=== PATIENT | female | born 1930 | race Caucasian/White ===

== ENCOUNTER 2017-08-17 12:38 | Inpatient (IN) | payer OTHER, MEDICARE ==
[~2017-08-17] VITALS: Ht 154.9 cm; Wt 74.3 kg
[2017-08-17] VITALS (9 sets, daily range): BP systolic 147–188; BP diastolic 67–88; PULSE 55–66; RESP 15–20; TEMP 97.5–98; O2SAT 96–100
[~2017-08-17 12:38] MED LIST: ARIC10TA PO; ASPI81TA21 PO; LEVO.025 PO; PROT40TA PO; SIMV20 PO
[2017-08-17] MEDS ORDERED: ASPI81CH6 CHEW (13:00)
[2017-08-17] MEDS ORDERED: LEVO25TA4 PO (13:00)
[2017-08-17] MEDS ORDERED: ARIC10TA9 PO (13:00)
[2017-08-17] MEDS ORDERED: SIMV20TA PO (13:00)
[2017-08-17] MEDS ORDERED: PROT40TA PO (13:00)
[2017-08-17] MEDS ORDERED: SODIUM CHLORIDE 0.9% FLUSH 10 ML FLUSH IVF PRN (13:30)
--- NOTE | 2017-08-17 14:08 | RADRPT ---
EXAM DATE/TIME: 08/17/2017 13:56 [facility] COMPARISON: CT BRAIN W/O CONTRAST, October 30, 2009, 19:00. INDICATIONS : Stroke alert, slurred speech RADIATION DOSE: 36.70 CTDIvol (mGy) This report was called to Dr. Desouza at 1359 MEDICAL HISTORY : Dementia. SURGICAL HISTORY : None. ENCOUNTER: Initial ACUITY: 2 days PAIN SCALE: 0/10 LOCATION: cranial TECHNIQUE: Multiple contiguous axial images were obtained of the head. Using automated exposure control and adj ustment of the mA and/or kV according to patient size, radiation dose was kept as low as reasonably a chievable to obtain optimal diagnostic quality images. DICOM format image data is available electro nically for review and comparison. FINDINGS: CEREBRUM: The ventricles are normal for age. No evidence of midline shift, mass lesion, hemorrhage or acute in farction. No extra-axial fluid collections are seen. Periventricular white matter ischemic changes are noted. POSTERIOR FOSSA: The cerebellum and brainstem are intact. The 4th ventricle is midline. The cerebellopontine angle i s unremarkable. Moderate calcific vascular changes are evident. Mass appears prominent the lungs so on 10/30/09 EXTRACRANIAL: The visualized portion of the orbits is intact. SKULL: The calvaria is intact. No evidence of skull fracture. CONCLUSION: Negative for acute hemorrhage or stroke Periventricular white matter ischemic changes are evident. Adams Durham MD FACR on August 17, 2017 at 14:01 Board Certified Radiologist. This report was verified electronically.
[2017-08-17 14:22] LABS: I-STAT POTASSIUM 4.3 MMOL/L (3.5-4.9); I-STAT SODIUM 142 MMOL/L (138-146)
[2017-08-17 14:30] LABS: AUTOMATED NEUTROPHIL # 3.8 TH/MM3 (1.8-7.7); BASOPHIL # 0.1 TH/MM3 (0-0.2); BASOPHIL % 0.8 % (0.0-2.0); EOSINOPHIL # 0.2 TH/MM3 (0-0.4); EOSINOPHIL % 2.3 % (0.0-4.0); HEMO FLAGS DIFF FINAL; LYMPH % 30.6 % (9.0-44.0); LYMPHOCYTE # 2.1 TH/MM3 (1.0-4.8); MEAN CELL VOLUME 88.8 FL (80.0-100.0); MEAN CORPUSCULAR HEMOGLOBIN 29.1 PG (27.0-34.0); MEAN CORPUSCULAR HGB CONC 32.8 % (32.0-36.0); MONO % 12.2 % (0.0-8.0); NEUT % 54.1 % (16.0-70.0); PLATELET COUNT 174 TH/MM3 (150-450); RED BLOOD COUNT 4.39 MIL/MM3 (4.00-5.30); RED CELL DISTRIBUTION WIDTH 14.7 % (11.6-17.2)
--- NOTE | 2017-08-17 14:36 | RADRPT ---
EXAM DATE/TIME: 08/17/2017 14:22 [facility] COMPARISON: CHEST SINGLE AP, May 09, 2016, 10:39. INDICATIONS : Short of breath and slurred speech starting this morning. MEDICAL HISTORY : None. SURGICAL HISTORY : Appendectomy. Cholecystectomy.Hysterectomy ENCOUNTER: Initial ACUITY: 1 day PAIN SCORE: 0/10 LOCATION: Bilateral chest FINDINGS: A single view of the chest demonstrates the lungs to be symmetrically aerated without evidence of mas s, infiltrate or effusion. The cardiomediastinal contours are unremarkable. A degenerative thoracic spine. Advanced osteoarthritis involving the left shoulder. Cholecystectomy clips. CONCLUSION: No acute disease. Tong Kaur Jr., MD on August 17, 2017 at 14:33 Board Certified Radiologist. This report was verified electronically.
[2017-08-17 14:45] LABS: ALT (GPT) 20 U/L (10-53); ANION GAP 8 MEQ/L (5-15); AST (GOT) 24 U/L (15-37); BICARBONATE 21.2 MEQ/L (21.0-32.0); BLOOD UREA NITROGEN 19 MG/DL (7-18); CHLORIDE 113 MEQ/L (98-107); GLOMERULAR FILTRATION RATE 44 ML/MIN (>89); POTASSIUM 4.4 MEQ/L (3.5-5.1); SODIUM (NA) 142 MEQ/L (136-145)
[2017-08-17 14:47] LABS: ALKALINE PHOSPHATASE 80 U/L (45-117); TOTAL BILIRUBIN ADULT 0.5 MG/DL (0.2-1.0)
[2017-08-17 14:49] LABS: APTT (PATIENT) 21.1 SEC (24.3-30.1); PROTHROMBIN TIME - PATIENT 10.1 SEC (9.8-11.6)
[2017-08-17] MEDS ORDERED: GLUCAGON 1 MG/ML VIAL OTHER PRN (15:30)
[2017-08-17] MEDS ORDERED: DEXTROSE 50% IN WATER 50 ML VIAL(D50) IV PUSH PRN (15:30)
[2017-08-17] MEDS ORDERED: SODIUM CHLORIDE 0.9% FLUSH 10 ML FLUSH IV FLUSH PRN (15:30)
--- NOTE | 2017-08-17 15:52 | MB ---
cc: DAYTON MORTENSEN M.D. DATE OF CONSULTATION 08/17/2017 REASON FOR CONSULTATION Stroke alert. HISTORY OF THE PRESENT ILLNESS Ms. Doshi is a pleasant 86-year-old woman who was in her usual state of good health until around 11 o'clock this morning when she was driving in the car with her daughter and suddenly had difficulties with her speech, mainly with slurring of her speech. She had no focal weakness. No loss of consciousness or other symptoms. She came to the ER and stroke alert was called. Since then her symptoms have remained largely unchanged. PAST MEDICAL HISTORY 1. History of Parkinson's disease. 2. Arthritis. 3. Hypothyroidism. 4. Hyperlipidemia. 5. Hypertension. 6. Cholecystectomy. 7. Hysterectomy. 8. Bilateral knee surgery. MEDICATIONS At home are: 1. Zestril 5 mg daily. 2. Aspirin 81 mg daily. 3. Protonix. 4. Digoxin. 5. Levothyroxine. 6. Simvastatin. 7. Aricept. ALLERGIES TO CONTRAST MEDIA AND SULFA. NEUROLOGIC EXAMINATION VITAL SIGNS: Blood pressure is 159/67, pulse 56, respiratory rate is 19, temperature 97 degrees. Higher cortical functions, the patient is alert. She follows commands. Speech is dysarthric not aphasic. Cranial nerves intact. Motor exam 5/5 strength of all groups in the upper and lower extremities. There is no drift. Reflexes are symmetric. IMAGING CT of the brain no acute changes present. LABORATORY DATA White count is 7000, hemoglobin 12.8, hematocrit 39%, platelet count 174,000. PT 10, INR 1.0, APTT 21.1. Sodium is 142, potassium 4.3, chloride 113, the CO2 is 21. The BUN is 19, creatinine 1.16, AST 24, ALT is 20. IMPRESSION Probable lacunar stroke with mainly dysarthria. We discussed the pros and cons of IV TPA with the patient's daughter but she wishes to hold off given the potential risk of hemorrhage. I would recommend close neurological checks per the ischemic stroke protocol. Also start Plavix 75 mg daily. Further evaluation with MRI and MRA of the brain, echocardiogram, carotid ultrasound and check lipid panel as well. MD GADIEL Xiao/SANTOS /3:21 PM /3:38 PM
--- NOTE | 2017-08-17 16:14 | PD ---
HPI Chief Complaint: Neuro Symptoms/ Deficits Time Seen by Provider: 13:15 Travel History International Travel<30 days: No Contact w/Intl Traveler<30days: No Traveled to known affect area: No History of Present Illness HPI Patient is an 86-year-old female presents emergency department for evaluation of dysarthria. According the patient's daughter the symptoms started approximately 2-1/2 hours prior to my examination about 11:00 this morning. She states they were driving about town when she noticed her mom is having some difficulty speaking. The patient is oriented to self and place, not the time. According to the daughter does have a history of some small amount of dementia. No focalized weakness no facial droop was seen. No syncope no headache. Daughter is somewhat concerned because recently the patient had Protonix adjusted because she has a history of reflux. No history of strokes. History fairly limited by the patient's altered mental status. PFSH Past Medical History Hx Anticoagulant Therapy: Yes Arthritis: Yes Asthma: No Autoimmune Disease: No Blood Disorders: No Depression: Yes Heart Rhythm Problems: No Cancer: No Cardiovascular Problems: Yes High Cholesterol: Yes Chemotherapy: No Chest Pain: No Congestive Heart Failure: No COPD: No Cerebrovascular Accident: No Diabetes: No Diminished Hearing: No Endocrine: No Gastrointestinal Disorders: Yes GERD: No Glaucoma: No Genitourinary: Yes Headaches: No Hepatitis: No Hiatal Hernia: No Hypertension: No Immune Disorder: No Implanted Vascular Access Dvce: Yes Kidney Stones: No Musculoskeletal: Yes Neurologic: Yes (PARKINSONS) Psychiatric: No Reproductive: No Respiratory: No Immunizations Current: No Migraines: No Myocardial Infarction: No Radiation Therapy: No Renal Failure: No Seizures: No Sickle Cell Disease: No Sleep Apnea: No Thyroid Disease: Yes Ulcer: No Tetanus Vaccination: Unknown Menopausal: Yes : 2 Para: 2 Miscarriage: 0 : 0 Past Surgical History Abdominal Surgery: Yes AICD: No Appendectomy: Yes Arteriovenous Shunt: No Cardiac Surgery: No Cholecystectomy: Yes Ear Surgery: No Endocrine Surgery: No Eye Surgery: No Genitourinary Surgery: No Gynecologic Surgery: Yes Hysterectomy: Yes Insulin Pump: No Joint Replacement: Yes (BILATERAL KNEES) Oral Surgery: No Pacemaker: No Thoracic Surgery: No Other Surgery: Yes Social History Alcohol Use: No Tobacco Use: No Substance Use: No Allergies-Medications (Allergen,Severity, Reaction): Coded Allergies: Sulfa (Sulfonamide Antibiotics) (Unverified Allergy, Severe, Rash, ) HIVES Reported Meds & Prescriptions Reported Meds & Active Scripts Active Reported Simvastatin 20 Mg Tab 20 Mg PO HS Protonix (Pantoprazole Sodium) 40 Mg Tab 40 Mg PO BID Levothyroxine (Levothyroxine Sodium) 25 Mcg Tab 25 Mcg PO HS Aricept (Donepezil HCl) 10 Mg Tablet 1 Tab PO HS Aspirin Low Dose (Aspirin) 81 Mg Chew 81 Mg CHEW DAILY Review of Systems Except as stated in HPI: all other systems reviewed are Neg Physical Exam Narrative GENERAL: Well developed well-nourisheddistress SKIN: Focused skin assessment warm/dry. HEAD: Atraumatic. Normocephalic. EYES: Pupils equal and round. No scleral icterus. No injection or drainage. ENT: No nasal bleeding or discharge. Mucous membranes pink and moist. NECK: Trachea midline. No JVD. CARDIOVASCULAR: Regular rate and rhythm. No murmur appreciated. RESPIRATORY: No accessory muscle use. Clear to auscultation. Breath sounds equal bilaterally. GASTROINTESTINAL: Abdomen soft, non-tender, nondistended. Hepatic and splenic margins not palpable. MUSCULOSKELETAL: No obvious deformities. No clubbing. No cyanosis. No edema. NEUROLOGICAL: Awake and alert. Cranial nerves II to go grossly intact and nonfocal, 5 out of 5 strength in all 4 extremities, the patient does have some dysarthria and difficulty finding words. She states the month is October, otherwise her NIH stroke scale is fairly low. PSYCHIATRIC: Appropriate mood and affect; insight and judgment normal. Data Data Last Documented VS Vital Signs Date Time Temp Pulse Resp B/P (MAP) Pulse Ox O2 Delivery O2 Flow Rate FiO2 08/17/17 17:02 56 15 173/72 (105) 99 Room Air 08/17/17 13:30 97.6 Orders Orders Electrocardiogram (08/17/17 13:24) Prothrombin Time / Inr (Pt) (08/17/17 13:24) Act Partial Throm Time (Ptt) (08/17/17 13:24) Complete Blood Count With Diff (08/17/17 13:24) Comprehensive Metabolic Panel (08/17/17 13:24) Urinalysis - C+S If Indicated (08/17/17 13:24) Ct Brain W/O Iv Contrast(Rout) (08/17/17 13:24) Chest, Single Ap (08/17/17 13:24) Ecg Monitoring (08/17/17 13:24) Iv Access Insert/Monitor (08/17/17 13:24) Oximetry (08/17/17 13:24) Blood Glucose (08/17/17 13:24) Sodium Chloride 0.9% Flush (Ns Flush) (08/17/17 13:30) I-Stat Creatinine (08/17/17 13:24) I-Stat Profile (08/17/17 13:24) Mra Brain W/O Contrast (Cow) (08/17/17 ) Cath For Specimen (08/17/17 15:11) Nih Stroke Scale - Nihss .On admission and discharge (08/17/17:) Neuro Checks Q4H (08/17/17:23) Case Management Consult (08/17/17 ) Activity Bed Rest (08/17/17:) Nursing Bedside Swallow Assess .ONCE (08/17/17:) Scd Bilateral/Knee High DIDI.QSHIFT (08/17/17:23) Hemoglobin (Hgb) A1c (08/17/17:23) Lipid Profile (08/18/17 06:00) Us Carotid Arteries Comp Bilat (08/17/17 ) Mri Brain W/O Contrast (08/17/17 ) Echo 2d Comp With Doppler (08/17/17 ) Resp Oxygen Sina C Titrat 1-4 L (08/17/17 ) ^ Hold Medication (08/17/17:23) Sodium Chloride 0.9% Flush (Ns Flush) (08/17/17 21:00) Sodium Chloride 0.9% Flush (Ns Flush) (08/17/17 15:30) Sodium Chlor 0.9% 1000 Ml Inj (Ns 1000 M (08/17/17 15:23) Aspirin Chew (Aspirin Chew) (08/17/17 15:30) Clopidogrel (Plavix) (08/17/17 15:30) Bedside Glucose DIDI.CSUGAR (08/17/17:) ^ Discontinue Insulin Orders (08/17/17 15:23) Insulin Aspart Supplemtl Scale (Novolog (08/17/17 17:00) Dextrose 50% In Bhaskar (Vial) Inj (D50w (Vi (12/18/17 15:30) Glucagon Inj (Glucagon Inj) (08/17/17 15:30) Consult Rehab Medicine (08/17/17 15:23) Sonar Subsystem Equipment Operator / Telemetry DIDI.Q8H (08/17/17 15:23) Consult Stroke Navigator (08/17/17 ) (Hub Use Only)Inp Phy Cons/Ref (08/17/17 ) Urine Culture (08/17/17 15:35) Admit Order (Ed Use Only) (08/17/17 ) Ceftriaxone Inj (Rocephin Inj) (08/17/17 17:15) Labs Laboratory Tests Test 08/17/17 13:40 08/17/17 15:35 White Blood Count 7.0 TH/MM3 Red Blood Count 4.39 MIL/MM3 Hemoglobin 12.8 GM/DL Bedside Hemoglobin 12.6 G/DL Hematocrit 39.0 % Bedside Hematocrit 37.0 % Mean Corpuscular Volume 88.8 FL Mean Corpuscular Hemoglobin 29.1 PG Mean Corpuscular Hemoglobin Concent 32.8 % Red Cell Distribution Width 14.7 % Platelet Count 174 TH/MM3 Mean Platelet Volume 11.1 FL Neutrophils (%) (Auto) 54.1 % Lymphocytes (%) (Auto) 30.6 % Monocytes (%) (Auto) 12.2 % Eosinophils (%) (Auto) 2.3 % Basophils (%) (Auto) 0.8 % Neutrophils # (Auto) 3.8 TH/MM3 Lymphocytes # (Auto) 2.1 TH/MM3 Monocytes # (Auto) 0.9 TH/MM3 Eosinophils # (Auto) 0.2 TH/MM3 Basophils # (Auto) 0.1 TH/MM3 CBC Comment DIFF FINAL Differential Comment Prothrombin Time 10.1 SEC Prothromb Time International Ratio 1.0 RATIO Activated Partial Thromboplast Time 21.1 SEC Bedside Sodium 142 MMOL/L Blood Urea Nitrogen 19 MG/DL Creatinine 1.16 MG/DL Random Glucose 78 MG/DL Total Protein 6.8 GM/DL Albumin 3.3 GM/DL Calcium Level 8.7 MG/DL Alkaline Phosphatase 80 U/L Aspartate Amino Transf (AST/SGOT) 24 U/L Alanine Aminotransferase (ALT/SGPT) 20 U/L Total Bilirubin 0.5 MG/DL Sodium Level 142 MEQ/L Potassium Level 4.4 MEQ/L Chloride Level 113 MEQ/L Carbon Dioxide Level 21.2 MEQ/L Bedside Potassium 4.3 MMOL/L Bedside Chloride 113 MMOL/L Anion Gap 8 MEQ/L Bedside Blood Urea Nitrogen 21 MG/DL Bedside Creatinine 1.2 MG/DL Estimat Glomerular Filtration Rate 44 ML/MIN Bedside Glucose 83 MG/DL Urine Color YELLOW Urine Turbidity HAZY Urine pH 5.0 Urine Specific [place] 1.013 Urine Protein NEG mg/dL Urine Glucose (UA) NEG mg/dL Urine Ketones NEG mg/dL Urine Occult Blood NEG Urine Nitrite NEG Urine Bilirubin NEG Urine Urobilinogen LESS THAN 2.0 MG/DL Urine Leukocyte Esterase LARGE Urine RBC 2 /hpf Urine WBC 45 /hpf Urine Squamous Epithelial Cells 5 /hpf Urine Bacteria MOD /hpf Microscopic Urinalysis Comment CATH-CULTURE IND MDM Medical Decision Making Medical Screen Exam Complete: Yes Emergency Medical Condition: Yes Differential Diagnosis Acute CVA, acute head bleed, urinary tract infection, electrolyte abnormality, anemia. Narrative Course Patient roomed emergency department, patient was activated the stroke alert by the time she was roomed emergency department she had been in the ER for approximately an hour. Certainly possible that her symptoms are more due to a metabolic cause minute ischemic cause. Her NIH stroke scale is 3, the patient was discussed with Dr. Edward, she is at the upper limits of the time frame for TPA and after some discussion we have agreed that the patient should at least be offered the medication. Given the fact that she is not oriented to time this was discussed with the patient's daughter. After discussion of the risks of bleeding both intracranially and intra-abdominally the patient's daughter defers TPA at this time citing that she would like to exclude metabolic causes and does not want to jeopardize her mother over such a limited deficit. I discussed with the patient's daughter that unfortunately this medication cannot be offered again later should her MRI be positive for stroke. She verbalized understanding and agreement and continues to decline TPA. The patient does indeed have urinary tract infection, MRI and MRA have been ordered because the patient does have an allergy to iodine contrast. CT of her head was negative. The patient will be admitted to medicine with neurology consult. Her symptoms have somewhat waxed and waned while in the emergency department. Diagnosis Primary Impression: Altered mental status Admitting Information Admitting Physician Requests: Observation Condition: Stable Minh Del Angel MD Aug 17, 2017 16:14
[2017-08-17 16:16] LABS: BACTERIA, URINE MOD /hpf; BLOOD, URINE NEG (NEG); COMMENT (UR) CATH-CULTURE IND; CULTURE IF INDICATED CATH CULTURE IND; GLUCOSE,URINE NEG (NEG); KETONE, URINE NEG (NEG); NITRITE,URINE NEG (NEG); SQUAMOUS EPITHELIAL CELL URINE 5 /hpf (0-5); URINE COLOR YELLOW (YELLW/STRAW)
--- NOTE | 2017-08-17 16:51 | RADRPT ---
EXAM DATE/TIME: 08/17/2017 16:07 [facility] COMPARISON: MRI BRAIN W/O CONTRAST, August 17, 2017, 16:07. INDICATIONS : Slurred speech. MEDICAL HISTORY : Hypertension. Dementia. SURGICAL HISTORY : Total knee replacement, right. Total knee replacement, left. Tonsillectomy. ENCOUNTER: Initial ACUITY: 1 day PAIN SCORE: 0/10 LOCATION: head Please note a normal MRA of the brain does not entirely exclude the possibility of a small aneurysm, nor the possibility of distal intracranial vessel disease. TECHNIQUE: 3D time of flight MRA was performed. Source images, multiplanar STS MIP, and 3D volume MIP reconstru ctions were reviewed. FINDINGS: There is poor visualization of the M2 vessels on the left. There is good visualization of the interc erebral arteries and the right MCA. This may be technical or embolic. MRI of the brain is pending. it. Both anterior cerebrals and the right middle cerebral are well visualized. 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 MRI of the brain i s pending. Adams Durham MD FACR on August 17, 2017 at 16:47 Board Certified Radiologist. This report was verified electronically.
[2017-08-17] MEDS: INSULIN ASPART SUPPLEMENTAL SCALE SQ SCH ×2 (17:00→21:00)
[2017-08-17] MEDS: ASPIRIN 81 MG CHEW TAB PO SCH (17:02)
[2017-08-17] MEDS: SODIUM CHLOR 0.9% 1000 ML INJ 1,000 ML IV SCH (17:02)
[2017-08-17] MEDS: CLOPIDOGREL 75 MG TAB PO SCH (17:02)
[2017-08-17] MEDS ORDERED: cefTRIAXone INJ 1,000 MG in SODIUM CHLORIDE 0.9% INJ 100 ML IV ONE (17:15)
--- NOTE | 2017-08-17 18:44 | RADRPT ---
EXAM DATE/TIME: 08/17/2017 16:07 [facility] COMPARISON: MRA BRAIN W/O CONTRAST, August 17, 2017, 16:07. CT BRAIN W/O CONTRAST, August 17, 2017, 13:56. INDICATIONS : Slurred speech. MEDICAL HISTORY : Hypertension. Dementia. SURGICAL HISTORY : Total knee replacement, right. Total knee replacement, left. Tonsillectomy. ENCOUNTER: Initial ACUITY: 1 day PAIN SCORE: 0/10 LOCATION: Head TECHNIQUE: Multiplanar, multisequence MRI of the brain was performed without contrast. FINDINGS: CEREBRUM: The ventricles are normal for age. No evidence of midline shift, mass lesion, hemorrhage or acute in farction. No extraaxial fluid collections are seen. The pituitary gland and suprasellar cistern are normal in configuration. WHITE MATTER: There is significant diffuse confluent T2 prolongation involving most of the supratentorial white mat ter and extending into the subcortical white matter; no signal abnormalities on the right side are la rger than on. POSTERIOR FOSSA: Abnormal. T2 prolongation and restricted diffusion in the lateral and central right cerebellar hemis phere involving the superior cortex. No evidence of acute blood products stopped 4th ventricle is in midline. DIFFUSION IMAGING: Confluent restricted diffusion in the right superior cerebellum. No restricted areas of diffusion in the infratentorial brain. EXTRACRANIAL: The visualized portions of the orbits and paranasal sinuses are unremarkable. CONCLUSION: 1. Acute nonhemorrhagic infarction in the right superior cerebellum corresponding to the superior cer ebellar artery distribution. 2. Severe white matter T2 prolongation in the supratentorial brain, characteristic of ischemic proces s, but no evidence of acute stroke in the supratentorial brain. Tong Son MD on August 17, 2017 at 18:35 Board Certified Radiologist. This report was verified electronically.
--- NOTE | 2017-08-17 21:14 | HHI.HP ---
[facility] Service [facility] Primary Care Physician Dione Sosa MD Admission Diagnosis Dysphagia, UTI. Diagnoses: Travel History International Travel<30 Days: No Contact w/Intl Traveler <30 Da: No Traveled to Known Affected Are: No History of Present Illness 86-year-old female with a past medical history significant for Parkinson's disease, arthritis, hypothyroidism, hyperlipidemia and hypertension presents to the emergency department where a stroke code was called. The patient was in her usual state of health until around 11 AM when she was driving in the car with her daughter when she suddenly had difficulties with her speech. The patient's son reports her speech was slow and slurred and remains that way now although he reports it is better than it was when she first came in. She had no focal weaknesses or lateralizing signs. On her arrival to the emergency department a stroke alert was called. The patient has no memory of the events and states she came because she had abdominal pain. She has some dementia at baseline. History provided largely by her son and review of medical records. Review of Systems Denies fever or chills Denies blurry vision, otorrhea, rhinorrhea Denies sore throat and cough No chest pain, palpitations, shortness of breath No abdominal pain Denies constipation/diarrhea/nausea/vomiting Denies muscle pain/weakness No rashes Past Family Social History Past Medical History Parkinson's disease Arthritis Hypothyroidism Hyperlipidemia Hypertension Past Surgical History Bilateral knee replacements Hysterectomy Cholecystectomy Reported Medications Reported Meds & Active Scripts Active Reported Simvastatin 20 Mg Tab 20 Mg PO HS Protonix (Pantoprazole Sodium) 40 Mg Tab 40 Mg PO BID Levothyroxine (Levothyroxine Sodium) 25 Mcg Tab 25 Mcg PO HS Aricept (Donepezil HCl) 10 Mg Tablet 1 Tab PO HS Aspirin Low Dose (Aspirin) 81 Mg Chew 81 Mg CHEW DAILY Allergies: Coded Allergies: Sulfa (Sulfonamide Antibiotics) (Unverified Allergy, Severe, Rash, ) HIVES Family History No family history of diabetes mellitus or coronary artery disease. Social History Denies alcohol, tobacco or drugs Physical Exam Vital Signs Vital Signs Date Time Temp Pulse Resp B/P (MAP) Pulse Ox O2 Delivery O2 Flow Rate FiO2 08/17/17 18:27 65 08/17/17 17:58 97.5 60 20 188/77 (114) 99 08/17/17 17:40 57 18 173/72 (105) 99 08/17/17 17:02 56 15 173/72 (105) 99 Room Air 08/17/17 13:30 97.6 56 19 159/67 (97) 100 Room Air 08/17/17 13:01 57 18 97 Room Air 08/17/17 13:01 97.6 57 18 159/67 (97) 97 Room Air 08/17/17 12:54 97.6 55 18 159/67 (97) 97 08/17/17 12:40 98.0 66 16 147/88 (107) 96 Room Air Physical Exam GENERAL: female lying in bed SKIN: No rashes, ecchymoses or lesions. Cool and dry. HEAD: Atraumatic. Normocephalic. No temporal or scalp tenderness. EYES: Pupils equal round and reactive. Extraocular motions intact. No scleral icterus. No injection or drainage. ENT: Nose without bleeding, purulent drainage or septal hematoma. Throat without erythema, tonsillar hypertrophy or exudate. Uvula midline. Airway patent. NECK: Trachea midline. No JVD or lymphadenopathy. Supple, nontender, no meningeal signs. CARDIOVASCULAR: Regular rate and rhythm without murmurs, gallops, or rubs. RESPIRATORY: Clear to auscultation. Breath sounds equal bilaterally. No wheezes , rales, or rhonchi. GASTROINTESTINAL: Abdomen soft, non-tender, nondistended. No hepato-splenomegaly , or palpable masses. No guarding. MUSCULOSKELETAL: Extremities without clubbing, cyanosis, or edema. No joint tenderness, effusion, or edema noted. No calf tenderness. NEUROLOGICAL: Awake and alert. Cranial nerves II through XII intact. Motor and sensory within normal limits. Five out of 5 muscle strength in all muscle groups. Slow speech without slurring. Laboratory Laboratory Tests Test 08/17/17 13:40 08/17/17 15:35 White Blood Count 7.0 Red Blood Count 4.39 Hemoglobin 12.8 Bedside Hemoglobin 12.6 Hematocrit 39.0 Bedside Hematocrit 37.0 Mean Corpuscular Volume 88.8 Mean Corpuscular Hemoglobin 29.1 Mean Corpuscular Hemoglobin Concent 32.8 Red Cell Distribution Width 14.7 Platelet Count 174 Mean Platelet Volume 11.1 Neutrophils (%) (Auto) 54.1 Lymphocytes (%) (Auto) 30.6 Monocytes (%) (Auto) 12.2 Eosinophils (%) (Auto) 2.3 Basophils (%) (Auto) 0.8 Neutrophils # (Auto) 3.8 Lymphocytes # (Auto) 2.1 Monocytes # (Auto) 0.9 Eosinophils # (Auto) 0.2 Basophils # (Auto) 0.1 CBC Comment DIFF FINAL Differential Comment Prothrombin Time 10.1 Prothromb Time International Ratio 1.0 Activated Partial Thromboplast Time 21.1 Bedside Sodium 142 Blood Urea Nitrogen 19 Creatinine 1.16 Random Glucose 78 Total Protein 6.8 Albumin 3.3 Calcium Level 8.7 Alkaline Phosphatase 80 Aspartate Amino Transf (AST/SGOT) 24 Alanine Aminotransferase (ALT/SGPT) 20 Total Bilirubin 0.5 Sodium Level 142 Potassium Level 4.4 Chloride Level 113 Carbon Dioxide Level 21.2 Bedside Potassium 4.3 Bedside Chloride 113 Anion Gap 8 Bedside Blood Urea Nitrogen 21 Bedside Creatinine 1.2 Estimat Glomerular Filtration Rate 44 Bedside Glucose 83 Urine Color YELLOW Urine Turbidity HAZY Urine pH 5.0 Urine Specific [place] 1.013 Urine Protein NEG Urine Glucose (UA) NEG Urine Ketones NEG Urine Occult Blood NEG Urine Nitrite NEG Urine Bilirubin NEG Urine Urobilinogen LESS THAN 2.0 Urine Leukocyte Esterase LARGE Urine RBC 2 Urine WBC 45 Urine Squamous Epithelial Cells 5 Urine Bacteria MOD Microscopic Urinalysis Comment CATH-CULTURE IND Date/Time Source Procedure Growth Status 08/17/17 15:35 Urine Clean Catch Urine Culture Pending Received Result Diagram: 08/17/17 1340 08/17/17 1340 Caprini VTE Risk Assessment Caprini VTE Risk Assessment: Mod/High Risk (score >= 2) Caprini Risk Assessment Model Point Value = 1 Point Value = 2 Point Value = 3 Point Value = 5 Age 41-60 Minor surgery BMI > 25 kg/m2 Swollen legs Varicose veins or History of unexplained or recurrent spontaneous Oral contraceptives or hormone replacement Sepsis (< 1 month) Serious lung disease, including pneumonia (< 1 month) Abnormal pulmonary function Acute myocardial infarction Congestive heart failure (< 1 month) History of inflammatory bowel disease Medical patient at bed rest Age 61-74 Arthroscopic surgery Major open surgery (> 45 min) Laparoscopic surgery (> 45 min) Malignancy Confined to bed (> 72 hours) Immobilizing plaster cast Central venous access Age >= 75 History of VTE Family history of VTE Factor V Leiden Prothrombin [id number] Lupus anticoagulant Anticardiolipin antibodies Elevated serum homocysteine Heparin-induced thrombocytopenia Other congenital or acquired thrombophilia Stroke (< 1 month) Elective arthroplasty Hip, pelvis, or leg fracture Acute spinal cord injury (< 1 month) Prophylaxis Regimen Total Risk Factor Score Risk Level Prophylaxis Regimen 0-1 Low Early ambulation 2 Moderate Order ONE of the following: *Sequential Compression Device (SCD) *Heparin 5000 units SQ BID 3-4 Higher Order ONE of the following medications: *Heparin 5000 units SQ TID *Enoxaparin/Lovenox 40 mg SQ daily (WT < 150 kg, CrCl > 30 mL/min) *Enoxaparin/Lovenox 30 mg SQ daily (WT < 150 kg, CrCl > 10-29 mL/min) *Enoxaparin/Lovenox 30 mg SQ BID (WT < 150 kg, CrCl > 30 mL/min) AND/OR *Sequential Compression Device (SCD) 5 or more Highest Order ONE of the following medications: *Heparin 5000 units SQ TID (Preferred with Epidurals) *Enoxaparin/Lovenox 40 mg SQ daily (WT < 150 kg, CrCl > 30 mL/min) *Enoxaparin/Lovenox 30 mg SQ daily (WT < 150 kg, CrCl > 10-29 mL/min) *Enoxaparin/Lovenox 30 mg SQ BID (WT < 150 kg, CrCl > 30 mL/min) AND *Sequential Compression Device (SCD) Assessment and Plan Assessment and Plan Assessment/plan: 1. CVA MRI brain showed acute nonhemorrhagic infarction in the right superior cerebellum US carotids, head MRA pending Neurology consulted, appreciate recommendations Start Plavix per neurology recommendations PT and speech consulted 2. UTI UA significant for large leukocyte esterase, 45 WBCs, moderate bacteria Urine culture pending Rocephin 3. Hypothyroidism/hyperlipidemia/dementia Continue home medications FEN Heart healthy diet after swallow eval NS at 70 cc/hr Electrolytes: Monitor and replete when necessary Fabi Sequeira MD Aug 17, 2017 21:13
[2017-08-17] MEDS: PRAVASTATIN SOD 40 MG TAB PO SCH (21:15)
[2017-08-17] MEDS: DONEPEZIL HCL 5 MG TAB PO SCH (21:15)
[2017-08-17] MEDS: LEVOTHYROXINE SODIUM 25 MCG TAB PO SCH (21:15)
[2017-08-17] MEDS: SODIUM CHLORIDE 0.9% FLUSH 10 ML FLUSH IV FLUSH SCH (21:16)
[2017-08-17 22:12] LABS: HEMOGLOBIN A1a 1.1 %; HEMOGLOBIN A1b 0.9 %; HEMOGLOBIN Ao 85.5 %; HEMOGLOBIN P3 3.8 %
--- NOTE | 2017-08-17 22:23 | RADRPT ---
EXAM DATE/TIME: 08/17/2017 16:48 [place] COMPARISON: No previous studies available for comparison. INDICATIONS : Cerebrovascular accident. MEDICAL HISTORY : Parkinson's. Hypercholesterolemia. Arthritis. Thyroid disease. Cataracts. Depression. Anticoagulant t herapy. SURGICAL HISTORY : Appendectomy. Cholecystectomy. Hysterectomy. Bilateral knee replacements. ENCOUNTER: Initial ACUITY: 1 day PAIN SCORE: 2/10 LOCATION: Bilateral neck PEAK SYSTOLIC VELOCITIES (cm/sec): ICA/CCA RATIO: Right: 1.4 Left: 1.6 ICA: Right: 85.4 Left: 86.5 CCA: Right: 60.3 Left: 55.6 ECA: Right: 80.2 Left: 77.6 VERTEBRAL: Right: 56.4 antegrade Left: 21.6 antegrade Elevated flow velocities and ICA/CCA ratios have been found to correlate with increased degrees of vessel stenosis, calculated as percentage of diameter relative to a normal segment of distal ICA/CCA FINDINGS: RIGHT CAROTID: Densely calcified and shadowing plaque in the carotid bulb and proximal internal carotid artery. The velocity wave forms have normal characteristics. LEFT CAROTID: Densely calcified and shadowing plaque in the distal common carotid artery and proximal internal beckman tid artery. The velocity wave forms have normal characteristics. VERTEBRAL ARTERIES: Antegrade flow is seen in both vertebral arteries. CONCLUSION: Densely calcified plaque proximal internal carotid artery bilaterally with hemodynamic profile charac teristic of less than 50% stenosis. Tong Son MD on August 17, 2017 at 22:19 Board Certified Radiologist. This report was verified electronically.
[2017-08-18] VITALS (9 sets, daily range): BP systolic 132–192; BP diastolic 62–85; PULSE 56–90; RESP 15–18; TEMP 96.8–97.6; O2SAT 94–98
[2017-08-18] MEDS: SODIUM CHLOR 0.9% 1000 ML INJ 1,000 ML IV SCH (05:41)
[2017-08-18] MEDS: INSULIN ASPART SUPPLEMENTAL SCALE SQ SCH ×4 (08:00→21:00)
[2017-08-18] MEDS: CLOPIDOGREL 75 MG TAB PO SCH (08:22)
[2017-08-18] MEDS: ASPIRIN 81 MG CHEW TAB PO SCH (08:22)
[2017-08-18] MEDS: PANTOPRAZOLE SOD 40 MG DELAYED RELEASE TAB PO SCH (08:22)
[2017-08-18] MEDS: SODIUM CHLORIDE 0.9% FLUSH 10 ML FLUSH IV FLUSH SCH ×2 (08:23→21:24)
[2017-08-18 11:05] LABS: HDL CHOLESTEROL 80.9 MG/DL (40.0-60.0)
--- NOTE | 2017-08-18 12:48 | EKG ---
Date Performed: 08/17/2017 Time Performed: 14:07:47 PTAGE: 86 years EKG: SINUS BRADYCARDIA WITH SINUS ARRHYTHMIA WITH FIRST DEGREE AV BLOCK ABNORMAL ECG PREVIOUS TRACING : 05/09/2016 11.03 Since previous tracing, no significant change noted DOCTOR: Calvin Simpson Interpretating Date/Time 08/18/2017 12:47:13
--- NOTE | 2017-08-18 13:14 | HHI.PR ---
Subjective Remarks Follow up on patient with CVA. Patient seen and examined. Daughter is at the bedside. Patients daughter reports patients slurred speech is much improved. Denies any difficulty swallowing. She denies any weakness, numbness or tingling in upper or lower extremities. She denies any vision changes or headache. Denies any fever or chills. She denies any chest pain or shortness of breath. Objective Vitals Vital Signs Date Time Temp Pulse Resp B/P (MAP) Pulse Ox O2 Delivery O2 Flow Rate FiO2 08/18/17 12:41 97.2 59 15 157/68 (97) 97 08/18/17 09:12 96.8 59 18 97 08/18/17 04:19 97.6 90 18 132/62 (85) 97 08/18/17 00:41 97.4 56 17 192/85 (120) 94 08/17/17 21:44 97 08/17/17 18:27 65 08/17/17 17:58 97.5 60 20 188/77 (114) 99 08/17/17 17:40 57 18 173/72 (105) 99 08/17/17 17:02 56 15 173/72 (105) 99 Room Air 08/17/17 13:30 97.6 56 19 159/67 (97) 100 Room Air I/O 08/17/17 08/17/17 08/17/17 08/18/17 08/18/17 08/18/17 07:00 15:00 23:00 07:00 15:00 23:00 # Voids 2 Result Diagram: 08/17/17 1340 08/17/17 1340 Imaging Last Impressions Head CT 08/17/17 1324 Signed Impressions: Service Date/Time: Thursday, August 17, 2017 13:56 - CONCLUSION: Negative for acute hemorrhage or stroke Periventricular white matter ischemic changes are evident. Adams Durham MD FACR Chest X-Ray 08/17/17 1324 Signed Impressions: Service Date/Time: Thursday, August 17, 2017 14:22 - CONCLUSION: No acute disease. Tong Kaur Jr., MD Head Magnetic Resonance Angiography 08/17/17 0000 Signed Impressions: Service Date/Time: Thursday, August 17, 2017 16:07 - CONCLUSION: Probable embolic disease MCA on the left involving small vessels. MRI of the brain is pending. Adams Durham MD FACR Carotid Artery Ultrasound 08/17/17 0000 Signed Impressions: Service Date/Time: Thursday, August 17, 2017 16:48 - CONCLUSION: Densely calcified plaque proximal internal carotid artery bilaterally with hemodynamic profile characteristic of less than 50%% stenosis. Tong Son MD Brain MRI 08/17/17 0000 Signed Impressions: Service Date/Time: Thursday, August 17, 2017 16:07 - CONCLUSION: 1. Acute nonhemorrhagic infarction in the right superior cerebellum corresponding to the superior cerebellar artery distribution. 2. Severe white matter T2 prolongation in the supratentorial brain, characteristic of ischemic process, but no evidence of acute stroke in the supratentorial brain. Tong Son MD Objective Remarks GENERAL: Elderly female sitting in bedside recliner eating breakfast. Awake and alert. Daughter at the bedside. No facial asymmetry appreciated. SKIN: Cool and dry. HEAD: Atraumatic. Normocephalic. EYES: Extraocular motions intact. No scleral icterus. No injection or drainage. ENT: Nose without bleeding or purulent drainage. Airway patent. MMM. NECK: Trachea midline. CARDIOVASCULAR: Bradycardic, regular rhythm without murmurs, gallops, or rubs. RESPIRATORY: Clear to auscultation. Breath sounds equal bilaterally. No wheezes , rales, or rhonchi. GASTROINTESTINAL: Abdomen soft, non-tender, nondistended. MUSCULOSKELETAL: Extremities without clubbing, cyanosis, or edema. NEUROLOGICAL: Awake and alert. Able to move all extremities spontaneously. Motor and sensory grossly intact. No focal neurologic finding appreciated. Slow but normal speech. Medications and IVs Current Medications Medications (Trade) Dose Ordered Sig/Jorge A Route Start Time Stop Time Status Last Admin (NS Flush) 2 ml BID IV FLUSH 08/17/17 21:00 08/18/17 08:23 (NS Flush) 2 ml UNSCH PRN IV FLUSH 08/17/17 15:30 Sodium Chloride 1,000 ml @ 70 mls/hr [id number] IV 08/17/17 15:23 08/17/17 17:02 (Aspirin Chew) 81 mg DAILY PO 08/17/17 15:30 08/18/17 08:22 (Plavix) 75 mg DAILY PO 08/17/17 15:30 08/18/17 08:22 (NovoLOG SUPPLEMENTAL SCALE) 1 ACHS SQ 08/17/17 17:00 (D50w (Vial) Inj) 50 ml UNSCH PRN IV PUSH 08/17/17 15:30 (Glucagon Inj) 1 mg UNSCH PRN OTHER 08/17/17 15:30 (Synthroid) 25 mcg HS PO 08/17/17 21:00 08/17/17 21:15 (Aricept) 10 mg HS PO 08/17/17 21:00 08/17/17 21:15 (Pravachol) 40 mg HS PO 08/17/17 21:00 08/17/17 21:15 (Protonix) 40 mg DAILY PO 08/18/17 09:00 08/18/17 08:22 Ceftriaxone Sodium 1000 mg/ Sodium Chloride 100 ml @ 200 mls/hr Q24H IV 08/18/17 17:00 A/P Assessment and Plan 1. CVA MRI brain showed acute nonhemorrhagic infarction in the right superior cerebellum US carotids - Densely calcified plaque proximal internal carotid artery bilaterally with hemodynamic profile characteristic of less than 50% stenosis. Head MRA - probable embolic disease MCA on the left involving small vessels. 2D echo pending Neurology consulted, appreciate recommendations. Continue on Plavix per neurology recommendations. ASA daily LDL 91, HgbA1c 5.3 PT/OT and speech consulted 2. UTI UA significant for large leukocyte esterase, 45 WBCs, moderate bacteria Urine culture pending Rocephin 3. Hypothyroidism/hyperlipidemia/dementia Continue home medications 4. CKD Creatinine appears near baseline Avoid nephrotoxic agents FEN Heart healthy diet after swallow eval NS at 70 cc/hr Electrolytes: Monitor and replete when necessary Discussed with patient, daughter and Dr. Mendoza Discharge Planning Pending neurology clearance and clinical course Shari Slaughter Aug 18, 2017 13:14
[2017-08-18] MEDS ORDERED: cefTRIAXone INJ 1,000 MG in SODIUM CHLORIDE 0.9% INJ 100 ML IV SCH (17:00)
[2017-08-18] MEDS: LEVOTHYROXINE SODIUM 25 MCG TAB PO SCH (21:19)
[2017-08-18] MEDS: PRAVASTATIN SOD 40 MG TAB PO SCH (21:19)
[2017-08-18] MEDS: DONEPEZIL HCL 5 MG TAB PO SCH (21:20)
--- NOTE | 2017-08-18 22:49 | HHI.PR ---
Review/Management Diagnosis cerebellar cva---continue plavix and asa monitor telemetry--r/o afib continue pravachol Diagnosis/Plan: Subjective Subjective Comments No acute events reported No further changes in speech Active Medications Current Medications Medications (Trade) Dose Ordered Sig/Jorge A Route Start Time Stop Time Status Last Admin (NS Flush) 2 ml BID IV FLUSH 08/17/17 21:00 08/18/17 21:24 (NS Flush) 2 ml UNSCH PRN IV FLUSH 08/17/17 15:30 (Aspirin Chew) 81 mg DAILY PO 08/17/17 15:30 08/18/17 08:22 (Plavix) 75 mg DAILY PO 08/17/17 15:30 08/18/17 08:22 (NovoLOG SUPPLEMENTAL SCALE) 1 ACHS SQ 08/17/17 17:00 (D50w (Vial) Inj) 50 ml UNSCH PRN IV PUSH 08/17/17 15:30 (Glucagon Inj) 1 mg UNSCH PRN OTHER 08/17/17 15:30 (Synthroid) 25 mcg HS PO 08/17/17 21:00 08/18/17 21:19 (Aricept) 10 mg HS PO 08/17/17 21:00 08/18/17 21:20 (Pravachol) 40 mg HS PO 08/17/17 21:00 08/18/17 21:19 (Protonix) 40 mg DAILY PO 08/18/17 09:00 08/18/17 08:22 Ceftriaxone Sodium 1000 mg/ Sodium Chloride 100 ml @ 200 mls/hr Q24H IV 08/18/17 17:00 08/18/17 17:34 Allergies Allergies Coded Allergies Sulfa (Sulfonamide Antibiotics) (Unverified Allergy, Severe, Rash, 08/17/17) Exam I&O / VS 08/18/17 08/18/17 08/19/17 15:00 23:00 07:00 Intake Total 950 ml Balance 950 ml Intake IV Total 950 ml Vital Signs Date Time Temp Pulse Resp B/P (MAP) Pulse Ox O2 Delivery O2 Flow Rate FiO2 08/18/17 21:42 97.4 63 18 177/74 (108) 98 08/18/17 17:04 97.3 63 18 150/70 (96) 97 08/18/17 15:00 63 08/18/17 12:41 97.2 59 15 157/68 (97) 97 08/18/17 09:12 96.8 59 18 97 08/18/17 08:00 62 08/18/17 04:19 97.6 90 18 132/62 (85) 97 08/18/17 00:41 97.4 56 17 192/85 (120) 94 Exam Comments alert, speech normal CN intact MOTOR 5/5 BUE and BLE Objective Radiology Results MRI brain--cva in right cerebellum Micro and Labs Laboratory Tests Test 08/18/17 10:02 Triglycerides Level 61 Cholesterol Level 184 LDL Cholesterol 91 HDL Cholesterol 80.9 Cholesterol/HDL Ratio 2.27 Date/Time Source Procedure Growth Status 08/17/17 15:35 Urine Clean Catch Urine Culture - Final 50-100,000 CFU/ML MIXED PIPPA... Complete Dev Edward PhD MD Aug 18, 2017 22:49
[2017-08-19 01:17] VITALS: BP 104/56; PULSE 66; RESP 18; TEMP 97.4; O2SAT 95
[2017-08-19 05:23] VITALS: BP 111/67; PULSE 65; RESP 18; TEMP 97.6; O2SAT 96
[2017-08-19] MEDS: INSULIN ASPART SUPPLEMENTAL SCALE SQ SCH ×2 (07:53→12:00)
[2017-08-19 08:00] VITALS: BP 154/67; PULSE 67; RESP 18; TEMP 97.7; O2SAT 95
[2017-08-19] MEDS: CLOPIDOGREL 75 MG TAB PO SCH (08:26)
[2017-08-19] MEDS: ASPIRIN 81 MG CHEW TAB PO SCH (08:26)
[2017-08-19] MEDS: PANTOPRAZOLE SOD 40 MG DELAYED RELEASE TAB PO SCH (08:27)
[2017-08-19] MEDS: SODIUM CHLORIDE 0.9% FLUSH 10 ML FLUSH IV FLUSH SCH (08:31)
[2017-08-19 08:59] VITALS: PULSE 52
--- NOTE | 2017-08-19 09:37 | HHI.PR ---
Subjective Remarks awake, stated her name, "[facility]" spoke with sister at bedside and daughter on the phone smiling- denies any pain baseline right handed with underlying dementia chronic left upper extremity weakness from shoulder injury baseline still independent- lives alone and ambulates with a cane - daughter and a sister checks on her everyday Objective Vitals Vital Signs Date Time Temp Pulse Resp B/P (MAP) Pulse Ox O2 Delivery O2 Flow Rate FiO2 08/19/17 08:59 52 08/19/17 08:00 97.7 67 18 154/67 (96) 95 08/19/17 05:23 97.6 65 18 111/67 (82) 96 08/19/17 01:17 97.4 66 18 104/56 (72) 95 08/18/17 21:42 97.4 63 18 177/74 (108) 98 08/18/17 21:00 58 08/18/17 17:04 97.3 63 18 150/70 (96) 97 08/18/17 15:00 63 08/18/17 12:41 97.2 59 15 157/68 (97) 97 I/O 08/18/17 08/18/17 08/18/17 08/19/17 08/19/17 08/19/17 07:00 15:00 23:00 07:00 15:00 23:00 Intake Total 950 ml Balance 950 ml Intake IV Total 950 ml # Voids 2 1 Result Diagram: 08/17/17 1340 08/17/17 1340 Imaging Last Impressions Head CT 08/17/17 1324 Signed Impressions: Service Date/Time: Thursday, August 17, 2017 13:56 - CONCLUSION: Negative for acute hemorrhage or stroke Periventricular white matter ischemic changes are evident. Adams Durham MD FACR Chest X-Ray 08/17/17 1324 Signed Impressions: Service Date/Time: Thursday, August 17, 2017 14:22 - CONCLUSION: No acute disease. Tong Kaur Jr., MD Head Magnetic Resonance Angiography 08/17/17 0000 Signed Impressions: Service Date/Time: Thursday, August 17, 2017 16:07 - CONCLUSION: Probable embolic disease MCA on the left involving small vessels. MRI of the brain is pending. Adams Durham MD FACR Carotid Artery Ultrasound 08/17/17 0000 Signed Impressions: Service Date/Time: Thursday, August 17, 2017 16:48 - CONCLUSION: Densely calcified plaque proximal internal carotid artery bilaterally with hemodynamic profile characteristic of less than 50%% stenosis. Tong Son MD Brain MRI 08/17/17 0000 Signed Impressions: Service Date/Time: Thursday, August 17, 2017 16:07 - CONCLUSION: 1. Acute nonhemorrhagic infarction in the right superior cerebellum corresponding to the superior cerebellar artery distribution. 2. Severe white matter T2 prolongation in the supratentorial brain, characteristic of ischemic process, but no evidence of acute stroke in the supratentorial brain. Tong Son MD Objective Remarks awake, stated her name anicteric, pupils equally reactive, EOM full range of motion no facial asymmetry, speech soft but clear + gag no nuchalr igidity, no bruit lungs- no rales regular rhythm on exam abdomen soft nontender extremities no edema motor LUE- 4/5, weak hand jazz singer moves , right UE- good jazz singer both LE spontananeously gait testing deferred A/P Assessment and Plan 86 years old right handed female Acute CVA, nonhemorrhagic infarction in the right superior cerebellum- mulitiembolic- likely due to underlying a fib US carotids - Densely calcified plaque proximal internal carotid artery bilaterally with hemodynamic profile characteristic of less than 50% stenosis. Head MRA - probable embolic disease MCA on the left involving small vessels. 2D echo pending Neurology consulted, Continue on Plavix _ ASA daily, statins LDL 91, HgbA1c 5.3 PT/OT and speech consult daily on telemetry- sinus - goes into intermittent a fib Dr. Edward ff- eventually plan to start OAC- will defer to him for choice Paroxysmal atrial fibrillation- now sinus evelyn with occasional PACs reveiewed telemetry- brief episodes of SVT 150 d/w daughter- patient with history of a fib- on Digoxin and was DC- 6 months ago - due to severe bradycardia daughter states ff by Dr. Blancas as OP. get Holter will consult cardiology for recommendation Pyuria culture 50,000 cfu- likely contaminants on Rocephin- will DC Hypothyroidism/hyperlipidemia/dementia Continue home medications check TSH CKD Creatinine appears near baseline Avoid nephrotoxic agents TEDs/SCDs CM consult- likely short term SNF and she would likely need to go to technician terminal and repeater or an EFREN eventually discuss about code- status- no code ADD seen by Dr. Rai- cleared for DC seen by Dr. Mobley- cleared for DC Home with Home heatlh care- can do holter as OP Juana Chaves MD Aug 19, 2017 09:37
[2017-08-19 12:00] VITALS: BP 123/75; PULSE 61; RESP 18; TEMP 97.9; O2SAT 98
[2017-08-19 12:42] VITALS: PULSE 55
[2017-08-19 13:07] LABS: BICARBONATE 24.4 MEQ/L (21.0-32.0); POTASSIUM 4.2 MEQ/L (3.5-5.1)
--- NOTE | 2017-08-19 14:11 | HHI.FF ---
Face to Face Verification Diagnosis: (1) CVA (cerebral vascular accident) Physical Therapy Order: Evaluate and Treat, Improve ambulation, Strength and gait training Occupational Therapy Order: Evaluate and Treat, Improve ADL Speech Therapy Order: To Improve: Speech and communication skills, Cognitive skills Home Health Nursing Order: Medical education Signs/symptoms of disease process Home Health Aide Order: To Assist In: Bathing and personal care Director Of Pediatric Rehabilitation Order: To Evaluate: Support services I have seen patient Stephanie Doshi on 08/19/17. My clinical findings support the need for the requested home health care services because: Ltd mobility - disease progression Deconditioned w/ increased weakness Need for psychosocial assistance High risk of falls I certify that my clinical findings support that this patient is homebound because: Unsafe to leave home unassisted Need for psychosocial assistance Juana Chaves MD Aug 19, 2017 14:10
[2017-08-19] MEDS ORDERED: PLAV75TA29 PO (14:16)
--- NOTE | 2017-08-19 14:19 | HHI.DS ---
Discharge Summary Admission Date Aug 18, 2017 at 09:17 Discharge Date: Aug 19, 2017 Admitting Diagnosis Dysphagia, UTI. (1) CVA (cerebral vascular accident) ICD Code: I63.9 - Cerebral infarction, unspecified Diagnosis: Principal (2) Atrial fibrillation ICD Code: I48.91 - Unspecified atrial fibrillation Diagnosis: Principal Procedures none Brief History - From Admission 86-year-old female with a past medical history significant for Parkinson's disease, arthritis, hypothyroidism, hyperlipidemia and hypertension presents to the emergency department where a stroke code was called. The patient was in her usual state of health until around 11 AM when she was driving in the car with her daughter when she suddenly had difficulties with her speech. The patient's son reports her speech was slow and slurred and remains that way now although he reports it is better than it was when she first came in. She had no focal weaknesses or lateralizing signs. On her arrival to the emergency department a stroke alert was called. The patient has no memory of the events and states she came because she had abdominal pain. She has some dementia at baseline. History provided largely by her son and review of medical records. CBC/BMP: 08/17/17 1340 08/19/17 1213 Significant Findings Laboratory Tests Test 08/17/17 13:40 08/17/17 15:35 08/18/17 10:02 08/19/17 12:13 Bedside Hematocrit 37.0 % (38.0-51.0) Mean Platelet Volume 11.1 FL (7.0-11.0) Monocytes (%) (Auto) 12.2 % (0.0-8.0) Activated Partial Thromboplast Time 21.1 SEC (24.3-30.1) Blood Urea Nitrogen 19 MG/DL (7-18) Creatinine 1.16 MG/DL (0.50-1.00) 1.14 MG/DL (0.50-1.00) Albumin 3.3 GM/DL (3.4-5.0) Chloride Level 113 MEQ/L (98-107) 111 MEQ/L (98-107) Bedside Chloride 113 MMOL/L (98-109) Bedside Creatinine 1.2 MG/DL (0.6-1.0) Estimat Glomerular Filtration Rate 44 ML/MIN (>89) 45 ML/MIN (>89) Urine Turbidity HAZY (CLEAR) Urine Leukocyte Esterase LARGE (NEG) Urine WBC 45 /hpf (0-5) Urine Bacteria MOD /hpf (NONE) HDL Cholesterol 80.9 MG/DL (40.0-60.0) Random Glucose 122 MG/DL (74-106) Imaging Last Impressions Head CT 08/17/17 1324 Signed Impressions: Service Date/Time: Thursday, August 17, 2017 13:56 - CONCLUSION: Negative for acute hemorrhage or stroke Periventricular white matter ischemic changes are evident. Adams Durham MD FACR Chest X-Ray 08/17/17 1324 Signed Impressions: Service Date/Time: Thursday, August 17, 2017 14:22 - CONCLUSION: No acute disease. Tong Kaur Jr., MD Head Magnetic Resonance Angiography 08/17/17 0000 Signed Impressions: Service Date/Time: Thursday, August 17, 2017 16:07 - CONCLUSION: Probable embolic disease MCA on the left involving small vessels. MRI of the brain is pending. Adams Durham MD FACR Carotid Artery Ultrasound 08/17/17 0000 Signed Impressions: Service Date/Time: Thursday, August 17, 2017 16:48 - CONCLUSION: Densely calcified plaque proximal internal carotid artery bilaterally with hemodynamic profile characteristic of less than 50%% stenosis. Tong Son MD Brain MRI 08/17/17 0000 Signed Impressions: Service Date/Time: Thursday, August 17, 2017 16:07 - CONCLUSION: 1. Acute nonhemorrhagic infarction in the right superior cerebellum corresponding to the superior cerebellar artery distribution. 2. Severe white matter T2 prolongation in the supratentorial brain, characteristic of ischemic process, but no evidence of acute stroke in the supratentorial brain. Tong Son MD PE at Discharge awake, stated her name anicteric, pupils equally reactive, EOM full range of motion no facial asymmetry, speech soft but clear + gag no nuchalr igidity, no bruit lungs- no rales regular rhythm on exam abdomen soft nontender extremities no edema motor LUE- 4/5, weak hand production supervisor trainee moves , right UE- good production supervisor trainee both LE spontananeously gait testing deferred Pt update on day of discharge awake and alert, no acute distress telemetry- in sinus rhythm strength stronger Hospital Course 86 years old right handed female Acute CVA, nonhemorrhagic infarction in the right superior cerebellum- mulitiembolic- likely due to underlying a fib US carotids - Densely calcified plaque proximal internal carotid artery bilaterally with hemodynamic profile characteristic of less than 50% stenosis. Head MRA - probable embolic disease MCA on the left involving small vessels. 2D echo pending Neurology consulted, Continue on Plavix _ ASA daily, statins LDL 91, HgbA1c 5.3 PT/OT and speech consult daily on telemetry- sinus - goes into intermittent a fib Dr. Edward ff- eventually plan to start OAC- will defer to him for choice Paroxysmal atrial fibrillation- now sinus evelyn with occasional PACs reveiewed telemetry- brief episodes of SVT 150 d/w daughter- patient with history of a fib- on Digoxin and was DC- 6 months ago - due to severe bradycardia daughter states ff by Dr. Blancas as OP. get Holter will consult cardiology for recommendation Pyuria culture 50,000 cfu- likely contaminants on Rocephin- will DC Hypothyroidism/hyperlipidemia/dementia Continue home medications check TSH CKD Creatinine appears near baseline Avoid nephrotoxic agents TEDs/SCDs CM consult- likely short term SNF and she would likely need to go to technician terminal and repeater or an EFREN eventually discuss about code- status- no code ADD seen by Dr. Rai- cleared for DC seen by Dr. Mobley- cleared for DC Home with Home heatlh care- can do holter as OP Pt Condition on Discharge: Good Discharge Disposition: Disch w/ Home Health Serv Discharge Time: <= 30 minutes Discharge Instructions DIET: Follow Instructions for: Heart Healthy Diet Speech Therapy-Diet Recommends: Soft Activities you can perform: Weight Bearing as Yoly Follow up Referrals: Cardiology - 1 Week with Magaly Blancas MD Neurology - 1 Week with Dev Edward PhD, MD PCP Follow-up - 3-5 Days with YUMIKO New Medications: Clopidogrel (Plavix) 75 Mg Tab 75 MG PO DAILY for CVA for 30 Days, #30 TAB Continued Medications: Aspirin (Aspirin Low Dose) 81 Mg Chew 81 MG CHEW DAILY, TAB 0 Refills Donepezil HCl (Aricept) 10 Mg Tablet 1 TAB PO HS Levothyroxine (Levothyroxine) 25 Mcg Tab 25 MCG PO HS for Thyroid, #30 TAB 0 Refills Pantoprazole (Protonix) 40 Mg Tab 40 MG PO BID for Reflux, #30 TAB 0 Refills Simvastatin (Simvastatin) 20 Mg Tab 20 MG PO HS for Cholesterol Management, #30 TAB 0 Refills Juana Chaves MD Aug 19, 2017 14:19
--- NOTE | 2017-08-19 15:35 | MB ---
cc: MAGALY BLANCAS M.D., GLENN H. M.D. DATE OF CONSULTATION 08/19/2017 REASON FOR CONSULTATION History of atrial fibrillation, acute CVA. HISTORY OF PRESENT ILLNESS The patient is an 86-year-old white female, followed in our office by Dr. Magaly Blancas, with a history of multiple medical problems including paroxysmal atrial fibrillation, hypertension, hyperlipidemia, hypothyroidism, Parkinson's disease, who presented to the emergency department with acute dysarthria. Further work-up with an MRI of the head shows evidence for an acute right superior cerebellar non-hemorrhagic CVA. The patient today feels "just fine." She denies any recent chest pain, shortness of breath, palpitations, dizziness, syncope, near-syncope, pedal edema, paroxysmal nocturnal dyspnea. The patient's daughter does note a history of falls, and the patient lives at home by herself. She believes the patient has fallen about three or four times in the last year. PAST MEDICAL HISTORY 1. Paroxysmal atrial fibrillation. 2. Hypertension. 3. Hyperlipidemia. 4. Parkinson's disease. 5. Hypothyroidism. MEDICATIONS Her cardiac medications at home: 1. Simvastatin 20 mg q.h.s. 2. Aspirin 81 mg daily. Cardiac medications here in the hospital: 1. Pravastatin 40 mg p.o. q.h.s. 2. Aspirin 81 mg p.o. q. daily. 3. Plavix 75 mg p.o. q. daily. ALLERGIES SULFA. FAMILY HISTORY Noncontributory. SOCIAL HISTORY The patient denies any history of alcohol or tobacco abuse. REVIEW OF SYSTEMS As in the history of present illness, otherwise negative or noncontributory. She also denies headache, abdominal pain, melena, dyspepsia, bright red blood per rectum, cough, fevers, weight loss. PHYSICAL EXAMINATION VITAL SIGNS: Blood pressure 123/75 with a pulse of 55, respirations 18. GENERAL: In general she is a well-developed, well-nourished white female in no acute distress. HEENT/NECK: Jugular venous pressure is normal. Carotid pulses are 2+ bilaterally and without bruits. CHEST: Examination of the chest reveals clear lung tabares. CARDIAC: On cardiac examination she has a bradycardic regular rhythm without S3, S4, or murmur. ABDOMEN: On abdominal examination she has a soft, nontender abdomen. Bowel sounds are present. There is no definite hepatosplenomegaly. EXTREMITIES: Examination of the extremities reveals no clubbing, cyanosis or edema. EKG EKG shows sinus bradycardia with first-degree AV block, otherwise normal EKG. LABORATORY Laboratory data includes normal CBC, potassium 4.2, BUN 15, creatinine 1.14, total cholesterol 184, LDL 91, HDL 81, triglycerides 61, INR 1.0. IMAGING Chest x-ray shows no acute disease. IMPRESSION Acute right cerebellar CVA in this 86-year-old white female with a history of paroxysmal atrial fibrillation, hypertension, hyperlipidemia, Parkinson's disease. I have been asked to see the patient with respect to therapy for her atrial fibrillation. At this time she remains in sinus bradycardia. Her monitoring strips have been reviewed. She may have had one very brief jean of what appears to be atrial fibrillation with a mildly increased ventricular response. Otherwise she remains in sinus bradycardia with occasional heart rates in the 40s. Ideally, she needs anticoagulation therapy, but she is somewhat of a fall risk, having fallen about four times in the last year at home. She has been placed here in the hospital on Plavix and aspirin. The patient and her family do state they would be very reluctant to place a pacemaker if needed in the future to facilitate use of cardiac medications. RECOMMENDATIONS 1. Conservative cardiac management at this point. 2. Avoid AV roe suppressing drugs. 3. In the future should she have more prolonged episodes of atrial fibrillation, consider implantation of a pacemaker to help facilitate the use of antiarrhythmic drugs and/or beta maximilian therapy. MD CHADWICK Bennett/CARISSA /1:41 PM /3:13 PM FRANCIE
--- NOTE | 2017-08-19 19:54 | ECHRPT ---
Indication: CVA/TIA CONCLUSIONS Normal left ventricular size. Wall thickness is measured at the upper limits of normal. The left ventricular systolic function is normal with an estimated ejection fraction in the range of 55-60%. Mitral annular calcification is present. Trace mitral valve regurgitation. Aortic valve sclerosis is present. Mild thickening of the aortic valve leaflets. Trace aortic valve regurgitation. There is mild tricuspid valve regurgitation. BP: 192 / 85 HR: 90 Rhythm: MEASUREMENTS (Male / Female) Normal Values Technical Quality:Good 2D ECHO LV Diastolic Diameter PLAX 4.4 cm 4.2 - 5.9 / 3.9 - 5.3 cm LV Systolic Diameter PLAX 3.1 cm IVS Diastolic Thickness 0.7 cm 0.6 - 1.0 / 0.6 - 0.9 cm LVPW Diastolic Thickness 0.7 cm 0.6 - 1.0 / 0.6 - 0.9 cm LV Relative Wall Thickness 0.3 RV Internal Dim ED PLAX 1.9 cm LA Systolic Diameter LX 3.8 cm 3.0 - 4.0 / 2.7 - 3.8 cm DOPPLER AV Peak Velocity 184.0 cm/s AV Peak Gradient 13.5 mmHg AV Mean Gradient 6.0 mmHg AV Velocity Time Integral 47.8 cm AI Peak Velocity 311.0 cm/s AI Peak Gradient 38.7 mmHg AI Pressure Half Time 590.0 ms LVOT Peak Velocity 74.4 cm/s LVOT Peak Gradient 2.2 mmHg LVOT Velocity Time Integral 18.8 cm MR Peak Velocity 322.0 cm/s MR Peak Gradient 41.5 mmHg Mitral E Point Velocity 104.0 cm/s Mitral A Point Velocity 45.9 cm/s Mitral E to A Ratio 2.3 TR Peak Velocity 356.0 cm/s TR Peak Gradient 50.7 mmHg FINDINGS LEFT VENTRICLE Normal left ventricular size. Wall thickness is measured at the upper limits of normal. The left ventricular systolic function is normal with an estimated ejection fraction in the range of 55-60%. RIGHT VENTRICLE Normal right ventricular size and systolic function. LEFT ATRIUM The left atrial size is normal. RIGHT ATRIUM The right atrial size is normal. ATRIAL SEPTUM Normal atrial septal thickness without atrial level shunting by limited color doppler interrogation. AORTA The aortic root and proximal ascending aorta are normal in size on limited imaging. MITRAL VALVE Mitral annular calcification is present. Trace mitral valve regurgitation. AORTIC VALVE Aortic valve sclerosis is present. Mild thickening of the aortic valve leaflets. Trace aortic valve regurgitation. TRICUSPID VALVE There is mild tricuspid valve regurgitation. PULMONARY VALVE The pulmonary valve is not well visualized. VESSELS The inferior vena cava is normal in size. PERICARDIUM No pericardial effusion. Kal Lowe MD, FACC (Electronically Signed) Final Date:19 August 2017 19:52
== END 2017-08-19 16:29 | disposition home health service (06) | DRG 65 ==
LOC: NEPC 12:38 → NEDA 17:12 → NEPGCP 17:47 → OBSVTOIN 08-18 09:17 → N05A 08-18 19:32
PROVIDERS: ADMIT Internal Medicine; ATTEND Internal Medicine
DX: I63.412 Cerebral infarction due to embolism of left middle cerebral artery (principal); I47.1 Supraventricular tachycardia; G20 Parkinson's disease; I48.0 Paroxysmal atrial fibrillation; R00.1 Bradycardia, unspecified; R13.10 Dysphagia, unspecified; F02.80 Dementia in other diseases classified elsewhere, unspecified severity, without behavioral disturbance, psychotic disturbance, mood disturbance, and anxiety; E78.5 Hyperlipidemia, unspecified; E03.9 Hypothyroidism, unspecified; M19.90 Unspecified osteoarthritis, unspecified site; R29.703 NIHSS score 3; R47.1 Dysarthria and anarthria; K21.9 Gastro-esophageal reflux disease without esophagitis; I12.9 Hypertensive chronic kidney disease with stage 1 through stage 4 chronic kidney disease, or unspecified chronic kidney disease; N18.9 Chronic kidney disease, unspecified; F32.9 Major depressive disorder, single episode, unspecified; Z88.2 Allergy status to sulfonamides; Z91.041 Radiographic dye allergy status; Z91.81 History of falling; Z96.653 Presence of artificial knee joint, bilateral
CPT/HCPCS: 70450; 70544; 70551; 71010; 80048; 80053; 80061; 81001; 82435; 82565; 82947; 82948; 83036; 84132; 84295; 84443; 84520; 85025; 85610; 85730; 87086; 93005; 93306; 93880; 96361; 96365; G0378; G8987-GP; G8988-GP; G8996-GN; G8997-GN; G8998-GN; J0696; J7030

== ENCOUNTER 2017-09-15 18:47 | Emergency (ER) | payer MEDICARE, OTHER ==
[~2017-09-15] VITALS: Ht 160 cm; Wt 75.0 kg
[~2017-09-15 18:47] MED LIST changes: -ARIC10TA PO; +ARIC10TA9 PO; +ASPI81CH6 CHEW; -ASPI81TA21 PO; -LEVO.025 PO; +LEVO25TA4 PO; +PLAV75TA29 PO; -SIMV20 PO; +SIMV20TA PO
[2017-09-15 19:08] VITALS: BP 202/108; PULSE 90; RESP 18; TEMP 98.5; O2SAT 97
--- NOTE | 2017-09-15 19:28 | RADRPT ---
EXAM DATE/TIME: 09/15/2017 18:52 [facility] COMPARISON: CT BRAIN W/O CONTRAST, August 17, 2017, 13:56. INDICATIONS : Fell out of bed and hit her head. RADIATION DOSE: 56.35 CTDIvol (mGy) MEDICAL HISTORY : Parkinson's. Thyroid disease, CVA, Cardiac, HTN SURGICAL HISTORY : ENCOUNTER: Initial ACUITY: 1 day PAIN SCALE: 4/10 LOCATION: Bilateral cranial TECHNIQUE: Multiple contiguous axial images were obtained of the head. Using automated exposure control and adj ustment of the mA and/or kV according to patient size, radiation dose was kept as low as reasonably a chievable to obtain optimal diagnostic quality images. DICOM format image data is available electro nically for review and comparison. FINDINGS: CEREBRUM: . Encephalomalacia involving the left occipital lobe and right parietal lobe. Extensive low attenuati on change involving the periventricular aspects of both cerebral hemispheres. The ventricles are norm al for age. No evidence of midline shift, mass lesion, hemorrhage or acute infarction. No extra-axi al fluid collections are seen. POSTERIOR FOSSA: The cerebellum and brainstem are intact. The 4th ventricle is midline. The cerebellopontine angle i s unremarkable. EXTRACRANIAL: Soft tissue hematoma involving the left frontal region. The visualized portion of the orbits is intac t. SKULL: The calvaria is intact. No evidence of skull fracture. CONCLUSION: 1. No acute intracranial abnormality. 2. Areas of encephalomalacia suggesting prior infarctions. 3. Extensive chronic small vessel ischemic change. 4. Left frontal soft tissue hematoma. Tong Kaur Jr., MD on September 15, 2017 at 19:24 Board Certified Radiologist. This report was verified electronically.
[2017-09-15] MEDS ORDERED: ONDANSETRON HCL 4 MG/2 ML VIAL IV PUSH ONE (19:30)
[2017-09-15] MEDS ORDERED: ACETAMINOPHEN 325 MG TAB PO ONE (19:30)
--- NOTE | 2017-09-15 19:31 | RADRPT ---
EXAM DATE/TIME: 09/15/2017 19:18 [facility] COMPARISON: CHEST SINGLE AP, August 17, 2017, 14:22. INDICATIONS : Pain post fall. MEDICAL HISTORY : Parkinson's. Hypercholesterolemia. Arthritis. Thyroid disease. Cataracts. Depression.Anticoagulant th erapy. SURGICAL HISTORY : Appendectomy. Cholecystectomy. Hysterectomy ENCOUNTER: Initial ACUITY: 1 day PAIN SCORE: 1/10 LOCATION: Bilateral chest FINDINGS: A single view of the chest demonstrates the lungs to be symmetrically aerated without evidence of mas s, infiltrate or effusion small calcified granuloma right lung. Stable mild cardiomegaly. Osteoarthri tic changes involve the thoracic spine and left shoulder.. Osseous structures are intact. CONCLUSION: 1. No acute cardio pulmonary disease. 2. Cardiomegaly. Tong Kaur Jr., MD on September 15, 2017 at 19:26 Board Certified Radiologist. This report was verified electronically.
--- NOTE | 2017-09-15 19:48 | RADRPT ---
EXAM DATE/TIME: 09/15/2017 18:52 [facility] COMPARISON: No previous studies available for comparison. INDICATIONS : Neck pain from falling out of bed. RADIATION DOSE: 28.63 CTDIvol (mGy) MEDICAL HISTORY : Hypertension. Cardiovascular disease Parkinsons.Thyroid disease. SURGICAL HISTORY : None. ENCOUNTER: Initial ACUITY: 1 day PAIN SCALE: 5/10 LOCATION: Bilateral neck region. TECHNIQUE: Volumetric scanning of the cervical spine was performed. Multiplanar reconstructions in the sagittal, coronal and oblique axial planes were performed. Using automated exposure control and adjustment o f the mA and/or kV according to patient size, radiation dose was kept as low as reasonably achievable to obtain optimal diagnostic quality images. DICOM format image data is available electronically f or review and comparison. FINDINGS: VERTEBRAE: Normal vertebral body height. ALIGNMENT: No evidence of subluxation. Diffuse calcified plaque involving the carotid arteries bilaterally. C2-C3: The bony spinal canal is normal in size. No evidence of disc bulge or herniation. The neural forami na are bilaterally patent. C3-C4: The bony spinal canal is normal in size. No evidence of disc bulge or herniation. Bony uncovertebral hypertrophy bilaterally. This generates moderate narrowing of the left neural foramen. The right rem ains patent. C4-C5: The bony spinal canal is normal in size. No evidence of disc bulge or herniation. The neural forami na are bilaterally patent. C5-C6: There is a mild grade 1 anterolisthesis. No disc bulge or protrusion. Bony uncovertebral hypertrophy without significant neural foraminal narrowing. C6-C7: The bony spinal canal is normal in size. No evidence of disc bulge or herniation. The neural forami na are bilaterally patent. C7-T1: The bony spinal canal is normal in size. No evidence of disc bulge or herniation. The neural forami na are bilaterally patent. CONCLUSION: 1. No fracture or dislocation. 2. Multilevel degenerative changes. Central canal is patent throughout. 3. Significant carotid artery atherosclerotic calcifications. Tong Kaur Jr., MD on September 15, 2017 at 19:42 Board Certified Radiologist. This report was verified electronically.
--- NOTE | 2017-09-15 20:12 | PD ---
HPI Chief Complaint: Head Injury Time Seen by Provider: 18:55 Travel History International Travel<30 days: No Contact w/Intl Traveler<30days: No Traveled to known affect area: No History of Present Illness HPI 86-year-old female that presents to the ED for evaluation of mechanical fall in injury to her head. Per patient she tripped today while her lesser footing on the left foot beer per patient she landed on her head. She has a hematoma. Patient had a friend that witnessed the fall. No loss consciousness. Patient does take blood thinners. Patient with recent admitted for CVA. Patient continues to take blood thinners. Per patient she having a headache as well as some vomiting. per EVAC she vomited twice, per patient she did not. She has had some repetitive questioning. Patient denies any chest pain or shortness of breath. No leg or arm pain. No back or neck pain. She denies any blurry vision or double vision. Per patient her headache it is 7 out of 10. Per patient in record she lives alone in she just has a friend visiting now. PFSH Past Medical History Hx Anticoagulant Therapy: Yes Arthritis: Yes Asthma: No Autoimmune Disease: No Blood Disorders: No Anxiety: No Depression: Yes (1960s) Heart Rhythm Problems: No Cancer: No Cardiovascular Problems: Yes High Cholesterol: Yes Chemotherapy: No Chest Pain: No Congestive Heart Failure: No COPD: No Cerebrovascular Accident: Yes (2017) Diabetes: No Diminished Hearing: No Endocrine: No Gastrointestinal Disorders: Yes GERD: No Glaucoma: No Genitourinary: Yes Headaches: No Hepatitis: No Hiatal Hernia: No Hypertension: Yes Immune Disorder: No Implanted Vascular Access Dvce: Yes Kidney Stones: No Musculoskeletal: Yes Psychiatric: No Reproductive: No Respiratory: No Immunizations Current: No Migraines: No Myocardial Infarction: No Radiation Therapy: No Renal Failure: No Seizures: No Sickle Cell Disease: No Sleep Apnea: No Thyroid Disease: Yes (Hypothyroid) Ulcer: No Menopausal: Yes : 2 Para: 2 Miscarriage: 0 : 0 Past Surgical History Abdominal Surgery: Yes AICD: No Appendectomy: Yes Arteriovenous Shunt: No Cardiac Surgery: No Cholecystectomy: Yes Ear Surgery: No Endocrine Surgery: No Eye Surgery: No Genitourinary Surgery: Yes (Gallbladder removed) Gynecologic Surgery: Yes Hysterectomy: Yes Insulin Pump: No Joint Replacement: Yes (BILATERAL KNEES) Oral Surgery: No Pacemaker: No Thoracic Surgery: No Other Surgery: Yes Social History Alcohol Use: No Tobacco Use: No Substance Use: No Allergies-Medications (Allergen,Severity, Reaction): Coded Allergies: Sulfa (Sulfonamide Antibiotics) (Unverified Allergy, Severe, Rash, ) HIVES Reported Meds & Prescriptions Reported Meds & Active Scripts Active Plavix (Clopidogrel Bisulfate) 75 Mg Tab 75 Mg PO DAILY 30 Days Reported Simvastatin 20 Mg Tab 20 Mg PO HS Protonix (Pantoprazole Sodium) 40 Mg Tab 40 Mg PO BID Levothyroxine (Levothyroxine Sodium) 25 Mcg Tab 25 Mcg PO HS Aricept (Donepezil HCl) 10 Mg Tablet 1 Tab PO HS Aspirin Low Dose (Aspirin) 81 Mg Chew 81 Mg CHEW DAILY Review of Systems Except as stated in HPI: all other systems reviewed are Neg Physical Exam Narrative GENERAL: SKIN: Warm and dry. HEAD: Atraumatic. Normocephalic. EYES: Pupils equal and round. No scleral icterus. No injection or drainage. ENT: No nasal bleeding or discharge. Mucous membranes pink and moist. Tongue midline. No uvula deviation. NECK: Trachea midline. No JVD. CARDIOVASCULAR: Regular rate and rhythm. No murmurs, S3, S4. RESPIRATORY: No accessory muscle use. Clear to auscultation. Breath sounds equal bilaterally. GASTROINTESTINAL: Abdomen soft, non-tender, nondistended. Hepatic and splenic margins not palpable. MUSCULOSKELETAL: Extremities without clubbing, cyanosis, or edema. No obvious deformities. Full range of motion of the upper lower extremities bilaterally. 2+ pulses bilaterally. NEUROLOGICAL: Awake and alert. No obvious cranial nerve deficits. Motor grossly within normal limits. Five out of 5 muscle strength in the arms and legs. Normal speech. PSYCHIATRIC: Appropriate mood and affect; insight and judgment normal. Data Data Last Documented VS Vital Signs Date Time Temp Pulse Resp B/P (MAP) Pulse Ox O2 Delivery O2 Flow Rate FiO2 09/15/17 20:37 09/15/17 20:36 67 16 98 Nasal Cannula 3.00 09/15/17 19:[address] Brain W/O Iv Contrast(Rout) (09/15/17 18:53) Ct Cerv Spine W/O Contrast (09/15/17 18:53) Electrocardiogram (09/15/17 18:54) Complete Blood Count With Diff (09/15/17 18:54) Comprehensive Metabolic Panel (09/15/17 18:54) Prothrombin Time / Inr (Pt) (09/15/17 18:54) Act Partial Throm Time (Ptt) (09/15/17 18:54) Magnesium (Mg) (09/15/17 18:54) Chest, Single Ap (09/15/17 18:54) Iv Access Insert/Monitor (09/15/17 18:54) Ecg Monitoring (09/15/17 18:54) Oximetry (09/15/17 18:54) Ondansetron Inj (Zofran Inj) (09/15/17 19:30) Acetaminophen (Tylenol) (09/15/17 19:30) Ed Discharge Order (09/15/17 21:01) Labs Laboratory Tests Test 09/15/17 19:52 [facility] Medical Decision Making Medical Screen Exam Complete: Yes Emergency Medical Condition: Yes Medical Record Reviewed: Yes Interpretation(s) Last Impressions Chest X-Ray 09/15/[id number] Signed Impressions: Service Date/Time: Friday, September 15, 2017 19:18 - CONCLUSION: 1. No acute cardio pulmonary disease. 2. Cardiomegaly. Tong Kaur Jr., MD Head CT 09/15/171852 Signed Impressions: Service Date/Time: Friday, September 15, 2017 18:52 - CONCLUSION: 1. No acute intracranial abnormality. 2. Areas of encephalomalacia suggesting prior infarctions. 3. Extensive chronic small vessel ischemic change. 4. Left frontal soft tissue hematoma. Tong Kaur Jr., MD Cervical Spine CT 09/15/[id number] Signed Impressions: Service Date/Time: Friday, September 15, 2017 18:52 - CONCLUSION: 1. No fracture or dislocation. 2. Multilevel degenerative changes. Central canal is patent throughout. 3. Significant carotid artery atherosclerotic calcifications. Tong Kaur Jr., MD Differential Diagnosis Head injury versus head bleed versus fracture versus concussion versus ICH versus unsafe discharge Narrative Course 86-year-old female presents to the ED for evaluation of head injury. Patient was properly examinable and was found to have signs in symptoms consistent with head injury. Labs and imaging were ordered. CT head stat order. CTs were essentially unremarkable. Patient wants reserpine her family member wants at bedside in actually she told me the patient for the most part has sent history of early dementia. She is not on any anticoagulation other than aspirin. She had a mechanical fall N no other injuries. Per daughter she is acting normal. I did have a lengthy discussion with the patient in the family member about possible need for long term placement secondary to her living by herself in having multiple comorbidities in high risk of fall. I did have case management talk to the patient in the patient on the family prefer to go home today on follow-up with the outpatient PCP to get placement. I think this as reasonable. Patient family agree with this. Dr. Mazariegos was not aware of findings in agrees with discharge. See ED worsening symptoms. Diagnosis Primary Impression: Head injury, acute Qualified Codes: S09.90XA - Unspecified injury of head, initial encounter Patient Instructions: General Instructions Additional Instructions: Tylenol for pain. Follow-up with PCP tomorrow for possible placement. See ED if worst. Med/Other Pt SpecificInfo: No Change to Meds Disposition: 01 DISCHARGE HOME Condition: Stable Xiang Templeton Sep 15, 2017 20:12
[2017-09-15 20:14] VITALS: O2SAT 98
[2017-09-15 20:23] VITALS: BP 185/77; PULSE 100; RESP 16; O2SAT 96
[2017-09-15 20:36] VITALS: BP 129/88; PULSE 67; RESP 16; O2SAT 98
[2017-09-15 21:03] LABS: AUTOMATED NEUTROPHIL # 4.3 TH/MM3 (1.8-7.7); BASOPHIL # 0.1 TH/MM3 (0-0.2); BASOPHIL % 1.1 % (0.0-2.0); EOSINOPHIL # 0.4 TH/MM3 (0-0.4); EOSINOPHIL % 4.3 % (0.0-4.0); HEMOGLOBIN 13.9 GM/DL (11.6-15.3); LYMPH % 37.7 % (9.0-44.0); LYMPHOCYTE # 3.3 TH/MM3 (1.0-4.8); MEAN CELL VOLUME 90.1 FL (80.0-100.0); MEAN CORPUSCULAR HEMOGLOBIN 29.2 PG (27.0-34.0); MEAN CORPUSCULAR HGB CONC 32.4 % (32.0-36.0); MEAN PLATELET VOLUME 11.4 FL (7.0-11.0); MONO % 7.9 % (0.0-8.0); MONOCYTE # 0.7 TH/MM3 (0-0.9); PLATELET COUNT 236 TH/MM3 (150-450); RED BLOOD COUNT 4.77 MIL/MM3 (4.00-5.30); RED CELL DISTRIBUTION WIDTH 14.2 % (11.6-17.2); WHITE BLOOD COUNT 8.8 TH/MM3 (4.0-11.0)
[2017-09-15 21:12] LABS: INTERNATIONAL NORMALIZED RATIO 1.1 RATIO; PROTHROMBIN TIME - PATIENT 10.7 SEC (9.8-11.6)
[2017-09-15 21:25] LABS: ALT (GPT) 27 U/L (10-53)
[2017-09-15 21:27] LABS: ALKALINE PHOSPHATASE 100 U/L (45-117); TOTAL BILIRUBIN ADULT 0.9 MG/DL (0.2-1.0); TOTAL PROTEIN 7.8 GM/DL (6.4-8.2)
[2017-09-16 08:17] LABS: ALBUMIN ND GM/DL (3.4-5.0); AST (GOT) ND U/L (15-37); BICARBONATE ND MEQ/L (21.0-32.0); BLOOD UREA NITROGEN ND MG/DL (7-18); CALCIUM ND MG/DL (8.5-10.1); CHLORIDE ND MEQ/L (98-107); CREATININE ND MG/DL (0.50-1.00); GLUCOSE,RANDOM ND MG/DL (74-106); MAGNESIUM ND MG/DL (1.5-2.5); SODIUM (NA) ND MEQ/L (136-145)
--- NOTE | 2017-09-16 09:49 | EKG ---
Date Performed: 09/15/2017 Time Performed: 19:25:26 PTAGE: 86 years EKG: ATRIAL FIBRILLATION WITH RAPID VENTRICULAR RESPONSE NONSPECIFIC ST & T-WAVE ABNORMALITY ABN ORMAL RHYTHM ECG PREVIOUS TRACING : 08/17/2017 14.07 DOCTOR: Darrell Fitzpatrick Interpretating Date/Time 09/16/2017 09:47:47
== END 2017-09-15 21:40 | disposition home or self-care (01) ==
LOC: NEPE 18:47
DX: S09.90XA Unspecified injury of head, initial encounter (principal); E03.9 Hypothyroidism, unspecified; E78.00 Pure hypercholesterolemia, unspecified; I10 Essential (primary) hypertension; W01.0XXA Fall on same level from slipping, tripping and stumbling without subsequent striking against object, initial encounter; Z79.02 Long term (current) use of antithrombotics/antiplatelets; Z86.73 Personal history of transient ischemic attack (TIA), and cerebral infarction without residual deficits
CPT/HCPCS: 70450; 71045; 72125; 85025; 85610; 85730; 93005; 96374; 99285; J2405; 80053; 83735

== ENCOUNTER 2018-01-02 10:04 | Inpatient (IN) | payer OTHER, MEDICAID, MEDICARE ==
[~2018-01-02] VITALS: Ht 162.6 cm; Wt 70.8 kg
[2018-01-02 10:14] VITALS: BP 167/72; PULSE 73; RESP 20; TEMP 98.4; O2SAT 96
[2018-01-02] MEDS ORDERED: SODIUM CHLORIDE 0.9% FLUSH 10 ML FLUSH IV FLUSH PRN ×2 (10:15→12:45)
--- NOTE | 2018-01-02 10:39 | PD ---
HPI Chief Complaint: Altered Mental Status Time Seen by Provider: 10:13 Travel History International Travel<30 days: No Contact w/Intl Traveler<30days: No Traveled to known affect area: No History of Present Illness HPI 87 y/o female presents with increased confusion per the ambulance team. Patient does have history of dementia. Patient cannot give me any history but does state her name. No one else is available currently. History is significantly limited. PFSH Past Medical History Hx Anticoagulant Therapy: Yes Arthritis: Yes Asthma: No Autoimmune Disease: No Blood Disorders: No Anxiety: No Depression: Yes () Heart Rhythm Problems: No Cancer: No Cardiovascular Problems: Yes High Cholesterol: Yes Chemotherapy: No Chest Pain: No Congestive Heart Failure: No COPD: No Cerebrovascular Accident: Yes (2016) Diabetes: No Diminished Hearing: No Endocrine: No Gastrointestinal Disorders: Yes GERD: No Glaucoma: No Genitourinary: Yes Headaches: No Hepatitis: No Hiatal Hernia: No Hypertension: Yes Immune Disorder: No Implanted Vascular Access Dvce: Yes Kidney Stones: No Musculoskeletal: Yes Psychiatric: No Reproductive: No Respiratory: No Immunizations Current: No Migraines: No Myocardial Infarction: No Radiation Therapy: No Renal Failure: No Seizures: No Sickle Cell Disease: No Sleep Apnea: No Thyroid Disease: Yes (Hypothyroid) Ulcer: No ?: Not Menopausal: Yes : 2 Para: 2 Miscarriage: 0 : 0 Past Surgical History Abdominal Surgery: Yes AICD: No Appendectomy: Yes Arteriovenous Shunt: No Cardiac Surgery: No Cholecystectomy: Yes Ear Surgery: No Endocrine Surgery: No Eye Surgery: No Genitourinary Surgery: Yes (Gallbladder removed) Gynecologic Surgery: Yes Hysterectomy: Yes Insulin Pump: No Joint Replacement: Yes (BILATERAL KNEES) Oral Surgery: No Pacemaker: No Thoracic Surgery: No Other Surgery: Yes Social History Alcohol Use: No Tobacco Use: No Substance Use: No Allergies-Medications (Allergen,Severity, Reaction): Coded Allergies: Sulfa (Sulfonamide Antibiotics) (Unverified Allergy, Severe, Rash, 01/02/18) HIVES Reported Meds & Prescriptions Reported Meds & Active Scripts Active Plavix (Clopidogrel Bisulfate) 75 Mg Tab 75 Mg PO DAILY 30 Days Reported Zantac (Ranitidine HCl) 150 Mg Tab 150 Mg PO DAILY Aspirin 325 Mg Tab 325 Mg PO DAILY Simvastatin 20 Mg Tab 20 Mg PO HS Protonix (Pantoprazole Sodium) 40 Mg Tab 40 Mg PO BID Levothyroxine (Levothyroxine Sodium) 25 Mcg Tab 25 Mcg PO HS Aricept (Donepezil HCl) 10 Mg Tablet 1 Tab PO HS Review of Systems Except as stated in HPI: all other systems reviewed are Neg Physical Exam Exam Limitations: Poor Historian Narrative GENERAL: 87-year-old female in no apparent distress SKIN: Focused skin assessment warm/dry. HEAD: Atraumatic. Normocephalic. EYES: Pupils equal and round. No scleral icterus. No injection or drainage. ENT: No nasal bleeding or discharge. Mucous membranes pink and moist. NECK: Trachea midline. CARDIOVASCULAR: Regular rate and rhythm. RESPIRATORY: No accessory muscle use. Clear to auscultation. Breath sounds equal bilaterally. GASTROINTESTINAL: Abdomen soft, non-tender, nondistended. MUSCULOSKELETAL: No obvious deformities. No clubbing. No cyanosis. NEUROLOGICAL: Awake and alert to name. Moves all extremities, equal grasp bilaterally, normal speech. Data Data Last Documented VS Vital Signs Date Time Temp Pulse Resp B/P (MAP) Pulse Ox O2 Delivery O2 Flow Rate FiO2 01/02/18 11:57 66 19 154/68 (96) 100 01/02/18 10:14 98.4 Room Air Orders Orders Electrocardiogram (01/02/18 10:13) Complete Blood Count With Diff (01/02/18 10:13) Comprehensive Metabolic Panel (01/02/18 10:13) Creatine Kinase (Cpk) (01/02/18 10:13) Prothrombin Time / Inr (Pt) (01/02/18 10:13) Act Partial Throm Time (Ptt) (01/02/18 10:13) Urinalysis - C+S If Indicated (01/02/18 10:13) Ct Brain W/O Iv Contrast(Rout) (01/02/18 10:13) Ecg Monitoring (01/02/18 10:13) Iv Access Insert/Monitor (01/02/18 10:13) Oximetry (01/02/18 10:13) Sodium Chloride 0.9% Flush (Ns Flush) (01/02/18 10:15) Sodium Chlorid 0.9% 500 Ml Inj (Ns 500 M (01/02/18 12:00) Admit Order (Ed Use Only) (01/02/18 12:03) Labs Laboratory Tests Test 01/02/18 10:39 White Blood Count 6.7 TH/MM3 Red Blood Count 4.55 MIL/MM3 Hemoglobin 12.3 GM/DL Hematocrit 37.7 % Mean Corpuscular Volume 82.9 FL Mean Corpuscular Hemoglobin 27.0 PG Mean Corpuscular Hemoglobin Concent 32.6 % Red Cell Distribution Width 13.9 % Platelet Count 248 TH/MM3 Mean Platelet Volume 10.3 FL Neutrophils (%) (Auto) 63.8 % Lymphocytes (%) (Auto) 22.5 % Monocytes (%) (Auto) 10.6 % Eosinophils (%) (Auto) 1.9 % Basophils (%) (Auto) 1.2 % Neutrophils # (Auto) 4.2 TH/MM3 Lymphocytes # (Auto) 1.5 TH/MM3 Monocytes # (Auto) 0.7 TH/MM3 Eosinophils # (Auto) 0.1 TH/MM3 Basophils # (Auto) 0.1 TH/MM3 CBC Comment DIFF FINAL Differential Comment Prothrombin Time 10.5 SEC Prothromb Time International Ratio 1.0 RATIO Activated Partial Thromboplast Time 22.6 SEC Urine Color LIGHT-YELLOW Urine Turbidity CLEAR Urine pH 5.5 Urine Specific Warren 1.009 Urine Protein NEG mg/dL Urine Glucose (UA) NEG mg/dL Urine Ketones NEG mg/dL Urine Occult Blood NEG Urine Nitrite NEG Urine Bilirubin NEG Urine Urobilinogen LESS THAN 2.0 MG/DL Urine Leukocyte Esterase NEG Urine RBC 1 /hpf Urine Squamous Epithelial Cells 2 /hpf Urine Mucus FEW /lpf Microscopic Urinalysis Comment CATH-CULT NOT IND Blood Urea Nitrogen 25 MG/DL Creatinine 1.38 MG/DL Random Glucose 85 MG/DL Total Protein 7.1 GM/DL Albumin 3.2 GM/DL Calcium Level 8.8 MG/DL Alkaline Phosphatase 100 U/L Aspartate Amino Transf (AST/SGOT) 28 U/L Alanine Aminotransferase (ALT/SGPT) 19 U/L Total Bilirubin 0.7 MG/DL Sodium Level 141 MEQ/L Potassium Level 4.2 MEQ/L Chloride Level 108 MEQ/L Carbon Dioxide Level 24.9 MEQ/L Anion Gap 8 MEQ/L Estimat Glomerular Filtration Rate 36 ML/MIN Total Creatine Kinase 72 U/L [facility] Medical Decision Making Medical Screen Exam Complete: Yes Emergency Medical Condition: Yes Medical Record Reviewed: Yes (Past history confirmed) Interpretation(s) CBC & BMP Diagram 01/02/18 10:39 Total Protein 7.1, Albumin 3.2 L, Calcium Level 8.8, Alkaline Phosphatase 100, Aspartate Amino Transf (AST/SGOT) 28, Alanine Aminotransferase (ALT/SGPT) 19, Total Bilirubin 0.7 Last [address] 01/02/18 1013 Signed Impressions: Service Date/Time: Thursday, January 02, 2018 10:54 - CONCLUSION: 1. Abnormal low density in the right occipital lobe and posterior temporal lobe suspicious for cytotoxic edema related to a recent ischemic event. MRI could further characterize, if needed. 2. Otherwise, multiple chronic changes, as above, without definite change from the prior study. Angus Maza MD Differential Diagnosis UTI, bleed, renal failure, electrolyte abnormality Narrative Course We will check blood work, urinalysis, CT scan and reevaluate CT shows areas of edema that are concerning for possible stroke. Daughter is now at bedside who is patient's caregiver and nurse and states that her symptoms started yesterday. She states she has been less interactive and not wanting to eat. She was updated and agrees to admission, will give aspirin. Physician Communication Physician Communication dr velez agrees to admit Diagnosis Primary Impression: Altered mental status Qualified Codes: R41.82 - Altered mental status, unspecified Additional Impression: Abnormal CT of brain Admitting Information Admitting Physician Requests: Observation Carolina Romero MD January 02, 2018 10:39
[2018-01-02] MEDS ORDERED: ASPI-183 PO (11:05)
[2018-01-02] MEDS ORDERED: ZANT150T2 PO (11:05)
[2018-01-02 11:14] LABS: PROTHROMBIN TIME - PATIENT 10.5 SEC (9.8-11.6)
[2018-01-02 11:15] LABS: AUTOMATED NEUTROPHIL # 4.2 TH/MM3 (1.8-7.7); BASOPHIL # 0.1 TH/MM3 (0-0.2); BASOPHIL % 1.2 % (0.0-2.0); EOSINOPHIL # 0.1 TH/MM3 (0-0.4); EOSINOPHIL % 1.9 % (0.0-4.0); HEMATOCRIT 37.7 % (35.0-46.0); HEMOGLOBIN 12.3 GM/DL (11.6-15.3); LYMPH % 22.5 % (9.0-44.0); LYMPHOCYTE # 1.5 TH/MM3 (1.0-4.8); MEAN CELL VOLUME 82.9 FL (80.0-100.0); MEAN CORPUSCULAR HGB CONC 32.6 % (32.0-36.0); MEAN PLATELET VOLUME 10.3 FL (7.0-11.0); MONO % 10.6 % (0.0-8.0); MONOCYTE # 0.7 TH/MM3 (0-0.9); NEUT % 63.8 % (16.0-70.0); PLATELET COUNT 248 TH/MM3 (150-450); RED BLOOD COUNT 4.55 MIL/MM3 (4.00-5.30); RED CELL DISTRIBUTION WIDTH 13.9 % (11.6-17.2); WHITE BLOOD COUNT 6.7 TH/MM3 (4.0-11.0)
--- NOTE | 2018-01-02 11:30 | RADRPT ---
EXAM DATE/TIME: 01/02/2018 10:54 [facility] COMPARISON: CT BRAIN W/O CONTRAST, September 15, 2017, 18:52. INDICATIONS : Altered mental status. RADIATION DOSE: 56.35 CTDIvol (mGy) MEDICAL HISTORY : Parkinson's. Stroke Hypertension. SURGICAL HISTORY : Hysterectomy. Cholecystectomy.Appendectomy. ENCOUNTER: Initial ACUITY: 1 day PAIN SCALE: Non-responsive LOCATION: Bilateral head TECHNIQUE: Multiple contiguous axial images were obtained of the head. Using automated exposure control and adj ustment of the mA and/or kV according to patient size, radiation dose was kept as low as reasonably a chievable to obtain optimal diagnostic quality images. DICOM format image data is available electro nically for review and comparison. FINDINGS: CEREBRUM: There is mild generalized atrophy. Ventricles are normal. There is moderate periventricular white mat ter low attenuation. There are patchy areas of low density in the right frontal region and bilateral parietal regions similar to the prior study. There is an area of a low density with sulcal effacement involving the right occipital lobe and right posterior temporal lobe with an appearance suggesting c ytotoxic edema. No midline shift or acute blood products are present. No extra-axial fluid collection s are seen. POSTERIOR FOSSA: The cerebellum and brainstem demonstrate no acute finding. There is stable encephalomalacia in the ri ght cerebellum. The 4th ventricle is midline. The cerebellopontine angle is unremarkable. EXTRACRANIAL: Visualized sinuses demonstrate no acute finding SKULL: The calvaria is intact. No evidence of skull fracture. CONCLUSION: 1. Abnormal low density in the right occipital lobe and posterior temporal lobe suspicious for cytoto xic edema related to a recent ischemic event. MRI could further characterize, if needed. 2. Otherwise, multiple chronic changes, as above, without definite change from the prior study. Angus Maza MD on January 02, 2018 at 11:14 Board Certified Radiologist. This report was verified electronically.
[2018-01-02 11:34] LABS: ALBUMIN 3.2 GM/DL (3.4-5.0); AST (GOT) 28 U/L (15-37); BICARBONATE 24.9 MEQ/L (21.0-32.0); BLOOD UREA NITROGEN 25 MG/DL (7-18); CALCIUM 8.8 MG/DL (8.5-10.1); CHLORIDE 108 MEQ/L (98-107); CREATININE 1.38 MG/DL (0.50-1.00); GLOMERULAR FILTRATION RATE 36 ML/MIN (>89); GLUCOSE,RANDOM 85 MG/DL (74-106); SODIUM (NA) 141 MEQ/L (136-145)
[2018-01-02 11:37] LABS: ALKALINE PHOSPHATASE 100 U/L (45-117); ALT (GPT) 19 U/L (10-53); TOTAL BILIRUBIN ADULT 0.7 MG/DL (0.2-1.0); TOTAL PROTEIN 7.1 GM/DL (6.4-8.2)
[2018-01-02 11:43] LABS: BILIRUBIN, URINE NEG (NEG); BLOOD, URINE NEG (NEG); GLUCOSE,URINE NEG (NEG); KETONE, URINE NEG (NEG); MUCUS URINE FEW /lpf (OCC); NITRITE,URINE NEG (NEG); PH, URINE 5.5 (5.0-8.5); SQUAMOUS EPITHELIAL CELL URINE 2 /hpf (0-5); URINE COLOR LIGHT-YELLOW (YELLW/STRAW); URINE LEUKOCYTE ESTERASE NEG (NEG)
[2018-01-02 11:57] VITALS: BP 154/68; PULSE 66; RESP 19; O2SAT 100
[2018-01-02] MEDS ORDERED: SODIUM CHLORID 0.9% 500 ML INJ 500 ML IV ONE (12:00)
--- NOTE | 2018-01-02 12:04 | HHI.HP ---
[facility] Service [facility] Primary Care Physician Unknown Admission Diagnosis Diagnoses: (1) CVA (cerebral vascular accident) Travel History International Travel<30 Days: No Contact w/Intl Traveler <30 Da: No Traveled to Known Affected Are: No History of Present Illness 87 year old female with history of CVA, dementia (questionable Parkinson's), atrial fibrillation, and hypothyroidism presenting with altered mental status. The patient's son and daughter are present and history is obtained by her daughter whom she lives with and who is her POA. The daughter reports yesterday her demeanor was completely different; typically she is pleasant and conversant but her daughter noted she was abnormally giddy, was not communicating, and did not know who her daughter was. She states she had a similar episode about six weeks ago that spontaneously resolved after about a day so her daughter was going to just watch her closely. 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 She did not have any obvious motor weakness, gait abnormalities, dysphagia, fever, nausea, vomiting, or abdominal pain. Her daughter states her urine was clear and nonodorous. Today she seems to be more sleepy. The patient was sleeping this morning when her daughter had to leave the house but later she pushed her life alert button and when her son-in-law heard emergency services on the speak he came to check on her. He noticed that she wouldn't speak to him so [facility] was called. Two days ago the patient was in her normal state of health. Normally she is conversant and has a good appetite. She ambulates with a cane. Patient's neurologist is Dr. Edward and heel boom operator is Dr. Watkins. She is not on anticoagulation secondary to history of frequent falls. Her daughter feels she may be ready to look into a snf for her mother as her is disabled and she has to take care of him as well. Review of Systems Constitutional: DENIES: Fever, Weight loss, Dizziness Endocrine: DENIES: Polyuria Eyes: DENIES: Blurred vision, Diplopia Ears, nose, mouth, throat: DENIES: Running Nose Respiratory: DENIES: Cough, Shortness of breath Gastrointestinal: DENIES: Abdominal pain, Black stools, Bloody stools, Diarrhea , Nausea, Vomiting Genitourinary: DENIES: Urinary frequency, Dysuria Musculoskeletal: DENIES: Joint pain, Back pain Integumentary: COMPLAINS OF: Pruritus, DENIES: Rash Neurologic: COMPLAINS OF: Tremor (Chronic), DENIES: Headache, Paresthesias, Speech Problems Psychiatric: COMPLAINS OF: Confusion Past Family Social History Past Medical History CVA R superior cerebellum 2017 Atrial fibrillation Dementia/?Parkinson's disease Hypothyroidism Hyperlipidemia Hypertension Osteoarthritis Past Surgical History Bilateral knee replacements Hysterectomy Cholecystectomy Reported Medications Plavix (Clopidogrel Bisulfate) 75 Mg Tab 75 Mg PO DAILY 30 Days Zantac (Ranitidine HCl) 150 Mg Tab 150 Mg PO DAILY Aspirin 325 Mg Tab 325 Mg PO DAILY Simvastatin 20 Mg Tab 20 Mg PO HS Protonix (Pantoprazole Sodium) 40 Mg Tab 40 Mg PO BID Levothyroxine (Levothyroxine Sodium) 25 Mcg Tab 25 Mcg PO HS Aricept (Donepezil HCl) 10 Mg Tablet 1 Tab PO HS Allergies: Coded Allergies: Sulfa (Sulfonamide Antibiotics) (Unverified Allergy, Severe, Rash, 01/02/18) HIVES Active Ordered Medications Aspirin (Aspirin) 325 mg ONCE ONCE PO; Start 01/02/18 at 12:30; Stop 01/02/18 at 12:31; Status DC Dextrose (D50w (Vial) Inj) 50 ml UNSCH PRN IV PUSH; Start 01/02/18 at 12:45 Glucagon (Glucagon Inj) 1 mg UNSCH PRN OTHER; Start 01/02/18 at 12:45 Insulin Aspart (NovoLOG SUPPLEMENTAL SCALE) 1 ACHS SQ; Start 01/02/18 at 17:00 Sodium Chloride 500 ml @ 500 mls/hr BOLUS ONCE IV Last administered on at 11:56; Admin Dose 500 MLS/HR; Start 01/02/18 at 12:00; Stop 01/02/18 at 12:59 ; Status DC Sodium Chloride 1,000 ml @ 70 mls/hr [id number] IV; Start 01/02/18 at 12:32 Sodium Chloride (NS Flush) 2 ml BID IV FLUSH; Start 01/02/18 at 21:00 Sodium Chloride (NS Flush) 2 ml UNSCH PRN IV FLUSH Last administered on at 11:56; Admin Dose 2 ML; Start 01/02/18 at 10:15 Sodium Chloride (NS Flush) 2 ml UNSCH PRN IV FLUSH; Start 01/02/18 at 12:45 Family History Noncontributory Social History Lives with daughter in [place] Denies EtOH, tobacco, illicit drugs Physical Exam Vital Signs Vital Signs Date Time Temp Pulse Resp B/P (MAP) Pulse Ox O2 Delivery O2 Flow Rate FiO2 01/02/18 11:57 66 19 154/68 (96) 100 01/02/18 10:14 98.4 73 20 167/72 (103) 96 Room Air Physical Exam GENERAL: Elderly female laying in bed in no apparent distress. SKIN: No rashes, ecchymoses or lesions. Cool and dry. HEENT: Atraumatic. Normocephalic. No temporal or scalp tenderness. Pupils small but equal round and reactive. Extraocular motions intact. No scleral icterus. No injection or drainage. Nose without bleeding, purulent drainage or septal hematoma. Throat without erythema, tonsillar hypertrophy or exudate. Uvula midline. Airway patent. NECK: Trachea midline. No JVD or lymphadenopathy. Supple, nontender, no meningeal signs. CARDIOVASCULAR: Irregularly irregular rate and rhythm with no appreciable murmurs. RESPIRATORY: Clear to auscultation. Breath sounds equal bilaterally. No wheezes , rales, or rhonchi. GASTROINTESTINAL: Abdomen soft, non-tender, nondistended. No hepatosplenomegaly or palpable masses. No guarding. MUSCULOSKELETAL: Extremities without clubbing, cyanosis, or edema. No joint tenderness, effusion, or edema noted. No calf tenderness. Negative Homans sign bilaterally. NEUROLOGICAL: Awake and alert. Oriented to person and can name the president but cannot identify her daughter. Laughs when asked to identify her daughter. States year is 20. Cranial nerves II through XII intact. Motor and sensory grossly within normal limits. Five out of 5 muscle strength in all muscle groups. No slurred speech. Follows commands. No evidence of neglect. Laboratory Laboratory Tests Test 01/02/18 10:39 White Blood Count 6.7 Red Blood Count 4.55 Hemoglobin 12.3 Hematocrit 37.7 Mean Corpuscular Volume 82.9 Mean Corpuscular Hemoglobin 27.0 Mean Corpuscular Hemoglobin Concent 32.6 Red Cell Distribution Width 13.9 Platelet Count 248 Mean Platelet Volume 10.3 Neutrophils (%) (Auto) 63.8 Lymphocytes (%) (Auto) 22.5 Monocytes (%) (Auto) 10.6 Eosinophils (%) (Auto) 1.9 Basophils (%) (Auto) 1.2 Neutrophils # (Auto) 4.2 Lymphocytes # (Auto) 1.5 Monocytes # (Auto) 0.7 Eosinophils # (Auto) 0.1 Basophils # (Auto) 0.1 CBC Comment DIFF FINAL Differential Comment Prothrombin Time 10.5 Prothromb Time International Ratio 1.0 Activated Partial Thromboplast Time 22.6 Urine Color LIGHT-YELLOW Urine Turbidity CLEAR Urine pH 5.5 Urine Specific [place] 1.009 Urine Protein NEG Urine Glucose (UA) NEG Urine Ketones NEG Urine Occult Blood NEG Urine Nitrite NEG Urine Bilirubin NEG Urine Urobilinogen LESS THAN 2.0 Urine Leukocyte Esterase NEG Urine RBC 1 Urine Squamous Epithelial Cells 2 Urine Mucus FEW Microscopic Urinalysis Comment CATH-CULT NOT IND Blood Urea Nitrogen 25 Creatinine 1.38 Random Glucose 85 Total Protein 7.1 Albumin 3.2 Calcium Level 8.8 Alkaline Phosphatase 100 Aspartate Amino Transf (AST/SGOT) 28 Alanine Aminotransferase (ALT/SGPT) 19 Total Bilirubin 0.7 Sodium Level 141 Potassium Level 4.2 Chloride Level 108 Carbon Dioxide Level 24.9 Anion Gap 8 Estimat Glomerular Filtration Rate 36 Total Creatine Kinase 72 Result Diagram: 01/02/18 1039 01/02/[address] 01/02/18 1013 Signed Impressions: Service Date/Time: Tuesday, January 02, 2018 10:54 - CONCLUSION: 1. Abnormal low density in the right occipital lobe and posterior temporal lobe suspicious for cytotoxic edema related to a recent ischemic event. MRI could further characterize, if needed. 2. Otherwise, multiple chronic changes, as above, without definite change from the prior study. MD Sanket Givens VTE Risk Assessment Sanket VTE Risk Assessment: Mod/High Risk (score >= 2) Caprini Risk Assessment Model Point Value = 1 Point Value = 2 Point Value = 3 Point Value = 5 Age 41-60 Minor surgery BMI > 25 kg/m2 Swollen legs Varicose veins or History of unexplained or recurrent spontaneous Oral contraceptives or hormone replacement Sepsis (< 1 month) Serious lung disease, including pneumonia (< 1 month) Abnormal pulmonary function Acute myocardial infarction Congestive heart failure (< 1 month) History of inflammatory bowel disease Medical patient at bed rest Age 61-74 Arthroscopic surgery Major open surgery (> 45 min) Laparoscopic surgery (> 45 min) Malignancy Confined to bed (> 72 hours) Immobilizing plaster cast Central venous access Age >= 75 History of VTE Family history of VTE Factor V Leiden Prothrombin [id number] Lupus anticoagulant Anticardiolipin antibodies Elevated serum homocysteine Heparin-induced thrombocytopenia Other congenital or acquired thrombophilia Stroke (< 1 month) Elective arthroplasty Hip, pelvis, or leg fracture Acute spinal cord injury (< 1 month) Prophylaxis Regimen Total Risk Factor Score Risk Level Prophylaxis Regimen 0-1 Low Early ambulation 2 Moderate Order ONE of the following: *Sequential Compression Device (SCD) *Heparin 5000 units SQ BID 3-4 Higher Order ONE of the following medications: *Heparin 5000 units SQ TID *Enoxaparin/Lovenox 40 mg SQ daily (WT < 150 kg, CrCl > 30 mL/min) *Enoxaparin/Lovenox 30 mg SQ daily (WT < 150 kg, CrCl > 10-29 mL/min) *Enoxaparin/Lovenox 30 mg SQ BID (WT < 150 kg, CrCl > 30 mL/min) AND/OR *Sequential Compression Device (SCD) 5 or more Highest Order ONE of the following medications: *Heparin 5000 units SQ TID (Preferred with Epidurals) *Enoxaparin/Lovenox 40 mg SQ daily (WT < 150 kg, CrCl > 30 mL/min) *Enoxaparin/Lovenox 30 mg SQ daily (WT < 150 kg, CrCl > 10-29 mL/min) *Enoxaparin/Lovenox 30 mg SQ BID (WT < 150 kg, CrCl > 30 mL/min) AND *Sequential Compression Device (SCD) Assessment and Plan Problem List: (1) CVA (cerebral vascular accident) ICD Code: I63.9 - Cerebral infarction, unspecified Status: Acute (2) IDRIS (acute kidney injury) ICD Code: N17.9 - Acute kidney failure, unspecified Status: Acute (3) Altered mental status ICD Code: R41.82 - Altered mental status, unspecified Status: Acute (4) Atrial fibrillation ICD Code: I48.91 - Unspecified atrial fibrillation Status: Chronic Assessment and Plan 87 YOWF with dementia, history of recent R cerebellar CVA in July 2017, hypothyroidism, atrial fibrillation, and HTN admitted for CVA after presenting with altered mental status. 1. CVA/AMS - No clinical or lab findings of infection to account for AMS - CT head demonstrates abnormal low density in the R occipital lobe and posterior temporal lobe suspicious for cytotoxic edema related to a recent ischemic event - Check MRI, MRA head and neck - Check a troponin - Echo done in July showed normal LV size with EF 55-60% and no source of thrombus - EKG showing atrial fibrillation rate-controlled, monitor on telemetry - PT/ST/OT - HOB flat x 12 hours - Permissive HTN - NS at 70 ml/hr - Neuro consulted for further eval - Continue home statin, ASA, and Plavix 2. IDRIS - Baseline creatinine appears to be around 1.07-1.16 with GFR in the 40s - On admission her creatinine is 1.38 with BUN 28 and GFR 36 - Provide gentle hydration with NS at 70/hr - Monitor renal function - Avoid nephrotoxic agents 3. Atrial fibrillation - Rate controlled without medication - Not anticoagulated secondary to falls - Monitor on telemetry 4. Dementia - Continue home Donepezil 5. Hypothyroidism - Continue home Levothyroxine - Check TSH 6. GERD - Continue home Zantac and Protonix FEN: - NS at 70 ml/hr - Monitor and replete lytes PRN - Heart healthy diet if passes nursing bedside swallow DVT prophylaxis: Heparin 5000 units Q8 Disposition: Case management consulted for assistance with placement upon discharge Code Status DNR Discussed Condition With Dr. Romero, patient's son and daughter Physician Certification 2 Midnight Certification Type: Admission for Inpatient Services Order for Inpatient Services The services are ordered in accordance with Medicare regulations or non- Medicare payer requirements, as applicable. In the case of services not specified as inpatient-only, they are appropriately provided as inpatient services in accordance with the 2-midnight benchmark. Estimated LOS (days): 2 2 days is the estimated time the patient will need to remain in the hospital, assuming treatment plan goals are met and no additional complications. Post-Hospital Plan: SNF Problem Qualifiers (1) Altered mental status: Qualified Codes: R41.82 - Altered mental status, unspecified Chey Colvin MD January 02, 2018 12:04
[2018-01-02] MEDS ORDERED: ASPIRIN 325 MG TAB PO ONE (12:30)
[2018-01-02] MEDS ORDERED: DEXTROSE 50% IN WATER 50 ML VIAL(D50) IV PUSH PRN (12:45)
[2018-01-02] MEDS ORDERED: GLUCAGON 1 MG/ML VIAL OTHER PRN (12:45)
[2018-01-02 13:00] VITALS: BP 146/71; PULSE 72; RESP 23; O2SAT 97
[2018-01-02] MEDS: SODIUM CHLOR 0.9% 1000 ML INJ 1,000 ML IV SCH (13:11)
[2018-01-02] MEDS ORDERED: PILL SPLITTER OTHER PRN (13:45)
--- NOTE | 2018-01-02 14:03 | MB ---
cc: Cole Lal MD DATE: 01/02/2018 HISTORY OF PRESENT ILLNESS: An 87-year-old right-handed woman with a history of hypertension, hypercholesterolemia, atrial fibrillation, hypothyroidism and stroke in July, which affected her speech. She has had multiple falls in the past, the last one in August. Lives with her daughter, although daughter is unable to be home 23/03. Daughter noticed yesterday that she seemed to be looking around and a little confused and came in the hospital. SOCIAL HISTORY: She is not a smoker or a drinker. She lives with her daughter. FAMILY HISTORY: Negative for cancer or seizure. Positive for TIA in her daughter. REVIEW OF SYSTEMS: Daughter denied any diabetes, CABG, renal, hepatic or pulmonary disease, lupus, ulcer, cancer, seizure. MEDICATIONS: She has been on: 1. Zantac. 2. Aspirin 325. 3. Simvastatin. 4. Protonix. 5. Thyroid medicine. 6. Plavix. 7. Aricept 10 mg a day. ALLERGIES: SHE IS ALLERGIC TO SULFA. PAST MEDICAL HISTORY: As above, also a history of dementia, bilateral knee replacement. Also, a history of possible Parkinson's, stroke of the right superior cerebellum in 2016. PHYSICAL EXAM: On exam, 98.4, 73, 21, 154/68. NECK: There were no carotid bruits. HEART: Irregular, irregular. I did not detect a murmur. EKG shows atrial fibrillation. NEUROLOGIC: Pupils are equal. It is hard to tell her vision. It is not normal. She tries to look around and find where my fingers are. She can count fingers at times. She is somewhat abulic. She does say Trump to the president and she follows some commands well. She evidently has some shoulder pain in the left arm, but seems to be moving it distally fine. The right arm and bilateral lower extremities move fine. Toes were downgoing bilaterally. DTRs are trace to absent throughout. She is awake. LABORATORY DATA: CT shows acute old right cerebellar infarct and acute right posterior temporoparietal lobe infarct. Some other infarcts looks like in the left posterior head region and right anterior MCA region. She had a CT scan of her cervical spine in August that was negative for fracture. She had an MRI of the brain in July that showed the right cerebellar infarct, white matter changes bilaterally. Carotid ultrasound at that time was negative. MRA [place] at that time, some disease in the distal MCA branches versus old clots. 2007 MRI of the brain, no acute infarct. IMPRESSION: Atrial fibrillation, at this point, multiple strokes and I would put her on subcutaneous heparin and Coumadin. She will need placement. I talked with her daughter who is unable to care for at home anymore. I am recommending to the med team to discontinue the aspirin and Plavix and start her on subcutaneous heparin and Coumadin to get an INR of 2.0. MD KEY Lan/CASPER , 01:37 PM , 02:03 PM
[2018-01-02] MEDS: HEPARIN SODIUM - SQ 10,000 UNITS/ML VIAL SQ SCH ×2 (14:21→22:54)
--- NOTE | 2018-01-02 14:49 | EKG ---
Date Performed: 01/02/2018 Time Performed: 10:21:19 PTAGE: 87 years EKG: ATRIAL FIBRILLATION NONSPECIFIC T-WAVE ABNORMALITY ABNORMAL RHYTHM ECG PREVIOUS TRACING : 09/15/2017 19.25 Since the prior tracing, ventricular response to the atrial fibrillation is slower. DOCTOR: Collin Ugalde Interpretating Date/Time 01/03/2018 14:15:11
[2018-01-02] MEDS: INSULIN ASPART SUPPLEMENTAL SCALE SQ SCH ×2 (17:00→21:00)
[2018-01-02 17:19] VITALS: BP 131/70; PULSE 87; RESP 18; TEMP 98.3; O2SAT 95
--- NOTE | 2018-01-02 17:26 | RADRPT ---
EXAM DATE/TIME: 01/02/2018 15:01 [facility] COMPARISON: CT BRAIN W/O CONTRAST, January 02, 2018, 10:54. MRI BRAIN W/O CONTRAST, August 17, 2017, 16:07. INDICATIONS : CVA. Confusion. MEDICAL HISTORY : Hypertension. Hypothyroidism. Hypercholesterolemia. Afib,CVA. SURGICAL HISTORY : Total knee replacement, left. Total knee replacement, right. ENCOUNTER: Initial ACUITY: 1 day PAIN SCORE: 0/10 LOCATION: cranial TECHNIQUE: Multiplanar, multisequence MRI of the brain was performed without contrast. FINDINGS: Diffuse signal abnormalities are identified within the temporal lobes bilaterally as well as the left occipital lobe on the diffusion weighted images indicating acute infarctions in these locations. Sev ere periventricular and subcortical white matter small vessel ischemic changes are noted bilaterally. Diffuse cerebral atrophy is noted. Old lacunar infarcts are noted within the bilateral basal ganglia . Old right cerebellar infarct is also noted. No acute hemorrhage, midline shift or extra-axial fluid collections are noted CONCLUSION: 1. Diffuse signal abnormalities within the temporal lobes bilaterally as well as the left occipital l obe on the diffusion weighted images indicating acute infarctions in these locations. 2. Severe periventricular and subcortical white matter small vessel ischemic changes bilaterally. 3. Diffuse cerebral atrophy. 4. Old right cerebellar infarct. 5. Old lacunar infarcts within the bilateral basal ganglia. 6. No acute hemorrhage, midline shift or extra-axial fluid collections. Minh Galvan MD on January 02, 2018 at 17:15 Board Certified Radiologist. This report was verified electronically.
--- NOTE | 2018-01-02 17:36 | RADRPT ---
EXAM DATE/TIME: 01/02/2018 15:01 [facility] COMPARISON: MRA BRAIN W/O CONTRAST, August 17, 2017, 16:07. INDICATIONS : CVA. Confusion. MEDICAL HISTORY : Hypertension. Hypothyroidism. Hypercholesterolemia. Afib, CVA. SURGICAL HISTORY : Total knee replacement, left. Total knee replacement, right. ENCOUNTER: Initial ACUITY: 1 day PAIN SCORE: 0/10 LOCATION: cranial Please note a normal MRA of the brain does not entirely exclude the possibility of a small aneurysm, nor the possibility of distal intracranial vessel disease. TECHNIQUE: 3D time of flight MRA was performed. Source images, multiplanar STS MIP, and 3D volume MIP reconstru ctions were reviewed. FINDINGS: There is evidence of occlusion of the left proximal posterior cerebral artery. The right posterior ce rebral artery is patent. The basilar artery is patent. There is a dominant right vertebral artery. Th e bilateral anterior and middle cerebral arteries are patent without significant stenosis or occlusio n. The upper cervical, petrous, cavernous and supraclinoid internal carotid arteries are patent witho ut significant stenosis or occlusion. No aneurysm is noted. 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 Minh Galvan MD on January 02, 2018 at 17:30 Board Certified Radiologist. This report was verified electronically.
[2018-01-02] MEDS: PANTOPRAZOLE SOD 40 MG DELAYED RELEASE TAB PO SCH (20:00)
[2018-01-02] MEDS: DONEPEZIL HCL 5 MG TAB PO SCH (20:00)
[2018-01-02] MEDS: PRAVASTATIN SOD 40 MG TAB PO SCH (20:00)
[2018-01-02] MEDS: LEVOTHYROXINE SODIUM 25 MCG TAB PO SCH (20:00)
[2018-01-02] MEDS: SODIUM CHLORIDE 0.9% FLUSH 10 ML FLUSH IV FLUSH SCH (20:00)
[2018-01-02 20:12] VITALS: PULSE 72
[2018-01-02 20:15] VITALS: BP 140/64; PULSE 63; RESP 18; TEMP 98.1; O2SAT 98
--- NOTE | 2018-01-02 23:15 | RADRPT ---
EXAM DATE/TIME: 01/02/2018 21:57 [facility] COMPARISON: No previous studies available for comparison. INDICATIONS : Altered mental status. MEDICAL HISTORY : Parkinson's. Cerebrovascular disease. Hypertension. CVA Right Superior Cerebellum - 2017. Hypothyro idism. Hyperlipidemia. Osteoarthritis. SURGICAL HISTORY : Cholecystectomy. Hysterectomy. Bilateral knee replacements. ENCOUNTER: Subsequent ACUITY: 4-6 months PAIN SCORE: 0/10 LOCATION: Bilateral neck PEAK SYSTOLIC VELOCITIES (cm/sec): ICA/CCA RATIO: Right: 1.1 Left: 1.2 ICA: Right: 73 Left: 73 CCA: Right: 65 Left: 63 ECA: Right: 86 Left: 64 VERTEBRAL: Right: 49 antegrade Left: 49 antegrade Elevated flow velocities and ICA/CCA ratios have been found to correlate with increased degrees of vessel stenosis, calculated as percentage of diameter relative to a normal segment of distal ICA/CCA FINDINGS: RIGHT CAROTID: No significant stenosis is visualized. The waveforms are within normal limits. LEFT CAROTID: No significant stenosis is visualized. The waveforms are within normal limits. VERTEBRAL ARTERIES: Antegrade flow is seen in both vertebral arteries. MISCELLANEOUS: None. CONCLUSION: No evidence of flow-limiting carotid stenosis. Angus Maguire MD on January 02, 2018 at 23:11 Board Certified Radiologist. This report was verified electronically.
[2018-01-03 00:35] VITALS: BP 115/64; PULSE 69; RESP 19; TEMP 97.6; O2SAT 97
[2018-01-03] MEDS: SODIUM CHLOR 0.9% 1000 ML INJ 1,000 ML IV SCH ×2 (02:50→10:29)
[2018-01-03 06:00] VITALS: BP 112/67; PULSE 66; RESP 20; TEMP 98.3; O2SAT 97
[2018-01-03] MEDS: HEPARIN SODIUM - SQ 10,000 UNITS/ML VIAL SQ SCH ×3 (06:02→23:19)
[2018-01-03] MEDS: SODIUM CHLORIDE 0.9% FLUSH 10 ML FLUSH IV FLUSH SCH ×2 (07:31→20:59)
[2018-01-03] MEDS: INSULIN ASPART SUPPLEMENTAL SCALE SQ SCH ×4 (07:31→20:59)
[2018-01-03] MEDS: PANTOPRAZOLE SOD 40 MG DELAYED RELEASE TAB PO SCH ×2 (07:32→20:40)
[2018-01-03] MEDS: FAMOTIDINE 20 MG TAB PO SCH ×2 (07:32→20:40)
[2018-01-03 08:00] VITALS: BP 148/65; PULSE 77; RESP 18; TEMP 97.3; O2SAT 94
[2018-01-03] MEDS ORDERED: CLOPIDOGREL 75 MG TAB PO SCH (09:00)
[2018-01-03] MEDS ORDERED: ASPIRIN 325 MG TAB PO SCH (09:00)
--- NOTE | 2018-01-03 09:53 | HHI.PR ---
Objective Vital Signs Date Time Temp Pulse Resp B/P (MAP) Pulse Ox O2 Delivery O2 Flow Rate FiO2 01/03/18 08:00 97.3 77 18 148/65 (92) 94 01/03/18 06:00 98.3 66 20 112/67 (82) 97 01/03/18 01:14 21 01/03/18 00:35 97.6 69 19 115/64 (81) 97 01/02/18 20:15 98.1 63 18 140/64 (89) 98 01/02/18 20:12 72 01/02/18 17:19 98.3 87 18 131/70 (90) 95 01/02/18 13:00 72 23 146/71 (96) 97 Room Air 01/02/18 11:57 66 19 154/68 (96) 100 01/02/18 10:14 98.4 73 20 167/72 (103) 96 Room Air I/O 01/02/18 01/02/18 01/02/18 01/03/18 01/03/18 01/03/18 07:00 15:00 23:00 07:00 15:00 23:00 Intake Total 600 ml 0 ml Output Total 400 ml 1450 ml Balance 200 ml -1450 ml Intake Oral 600 ml 0 ml Output Urine Total 400 ml 1450 ml # Bowel Movements 0 1 Result Diagram: 01/02/18 1039 01/02/18 1039 Objective Remarks restless moves bilat le vision impaired tremor Assessment and Plan Assessment and Plan imp she needs to start coumadin and dc plavix and asa med team plz do tis needs nh placement mri bilat cva l>r major fall risk Cole Lal MD January 03, 2018 09:53
[2018-01-03] MEDS ORDERED: diphenhydrAMINE HCL ELIXIR 12.5 MG/5 ML CUP PO PRN (11:30)
--- NOTE | 2018-01-03 11:42 | HHI.PR ---
Subjective Remarks No significant changes compared to admit. Patient unable to verbalize to me. Her daughter says she has responded some to verbal stimulus. Confusion weakness present. The daughter is interested in hospice and understands that at this point she is probably not meeting hospice house. Ultimately she will need to discharge to a [facility] facility. Objective Vital Signs Date Time Temp Pulse Resp B/P (MAP) Pulse Ox O2 Delivery O2 Flow Rate FiO2 01/03/18 08:00 97.3 77 18 148/65 (92) 94 01/03/18 06:00 98.3 66 20 112/67 (82) 97 01/03/18 01:14 21 01/03/18 00:35 97.6 69 19 115/64 (81) 97 01/02/18 20:15 98.1 63 18 140/64 (89) 98 01/02/18 20:12 72 01/02/18 17:19 98.3 87 18 131/70 (90) 95 01/02/18 13:00 72 23 146/71 (96) 97 Room Air 01/02/18 11:57 66 19 154/68 (96) 100 I/O 01/02/18 01/02/18 01/02/18 01/03/18 01/03/18 01/03/18 07:00 15:00 23:00 07:00 15:00 23:00 Intake Total 600 ml 0 ml Output Total 400 ml 1450 ml Balance 200 ml -1450 ml Intake Oral 600 ml 0 ml Output Urine Total 400 ml 1450 ml # Bowel Movements 0 1 Result Diagram: 01/02/18 1039 01/02/18 1039 Objective Remarks GENERAL: NAD, A&Ox0 HEAD: Normocephalic. NECK: Supple, trachea midline. No lymphadenopathy. EYES: No scleral icterus. No injection or drainage. Visual deficit. CARDIOVASCULAR: Regular rate and rhythm without murmurs, gallops, or rubs. RESPIRATORY: Breath sounds equal bilaterally. No accessory muscle use. GASTROINTESTINAL: Abdomen soft, non-tender, nondistended. MUSCULOSKELETAL: No cyanosis, or edema. SKIN: Warm and dry. NEURO: No focal neurological deficitis. 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 CVA/AMS Continue to monitor clinically Neurology following MRI positive for left occipital, and bilateral temporal acute CVA. Discontinue IV fluids Patient able to eat Plan for [facility] facility at discharge Hospice consult at request of family As recommended by neurology, discontinue aspirin and Plavix, start Coumadin IDRIS Monitor renal function avoid nephrotoxic agents Atrial fibrillation Rate controlled Discontinue telemetry Coumadin recommended by neurology Follow INR Dementia Continue donezepil Supportive care Hypothyroidism Continue levothyroxine Gastroesophageal reflux disease Continue Zantac Continue Protonix DVT prophylaxis Heparin 5000 units Q8 Code Status DNR Discharge planning Discharge to [facility] facility after patient stabilized Real Norwood MD January 03, 2018 11:42
[2018-01-03 11:59] LABS: AUTOMATED NEUTROPHIL # 8.1 TH/MM3 (1.8-7.7); BASOPHIL # 0.1 TH/MM3 (0-0.2); BASOPHIL % 0.7 % (0.0-2.0); EOSINOPHIL % 0.3 % (0.0-4.0); HEMATOCRIT 39.1 % (35.0-46.0); HEMOGLOBIN 12.8 GM/DL (11.6-15.3); LYMPH % 14.4 % (9.0-44.0); LYMPHOCYTE # 1.5 TH/MM3 (1.0-4.8); MEAN CELL VOLUME 83.2 FL (80.0-100.0); MEAN CORPUSCULAR HEMOGLOBIN 27.2 PG (27.0-34.0); MEAN CORPUSCULAR HGB CONC 32.7 % (32.0-36.0); MEAN PLATELET VOLUME 10.9 FL (7.0-11.0); MONO % 7.8 % (0.0-8.0); MONOCYTE # 0.8 TH/MM3 (0-0.9); NEUT % 76.8 % (16.0-70.0); PLATELET COUNT 262 TH/MM3 (150-450); RED CELL DISTRIBUTION WIDTH 13.8 % (11.6-17.2); WHITE BLOOD COUNT 10.5 TH/MM3 (4.0-11.0)
[2018-01-03 12:00] VITALS: BP 149/66; PULSE 75; RESP 18; O2SAT 97
[2018-01-03 12:34] LABS: BICARBONATE 21.4 MEQ/L (21.0-32.0); CALCIUM 9.2 MG/DL (8.5-10.1); CREATININE 1.35 MG/DL (0.50-1.00)
[2018-01-03 12:38] LABS: CHOLESTEROL/ HDL RATIO 2.02 RATIO; HDL CHOLESTEROL 78.5 MG/DL (40.0-60.0)
[2018-01-03 13:10] LABS: HEMOGLOBIN A1C 5.5 % (4.3-6.0)
[2018-01-03] MEDS: WARFARIN SOD 5 MG TAB PO SCH (14:19)
[2018-01-03 16:00] VITALS: BP 158/78; PULSE 84; RESP 18; O2SAT 96
[2018-01-03] MEDS: DONEPEZIL HCL 5 MG TAB PO SCH (20:40)
[2018-01-03] MEDS: LEVOTHYROXINE SODIUM 25 MCG TAB PO SCH (20:40)
[2018-01-03] MEDS: PRAVASTATIN SOD 40 MG TAB PO SCH (20:40)
[2018-01-03 21:50] VITALS: BP 115/68; PULSE 69; RESP 19; TEMP 97.8; O2SAT 95
[2018-01-04] VITALS (7 sets, daily range): BP systolic 119–154; BP diastolic 58–80; PULSE 64–86; RESP 16–20; TEMP 97–98.2; O2SAT 95–100
[2018-01-04] MEDS: HEPARIN SODIUM - SQ 10,000 UNITS/ML VIAL SQ SCH ×3 (06:40→20:16)
[2018-01-04] MEDS: INSULIN ASPART SUPPLEMENTAL SCALE SQ SCH ×3 (07:21→16:16)
[2018-01-04] MEDS: PANTOPRAZOLE SOD 40 MG DELAYED RELEASE TAB PO SCH ×2 (07:22→20:14)
[2018-01-04] MEDS: SODIUM CHLORIDE 0.9% FLUSH 10 ML FLUSH IV FLUSH SCH ×2 (07:22→20:15)
[2018-01-04] MEDS: FAMOTIDINE 20 MG TAB PO SCH ×2 (07:22→20:15)
[2018-01-04 07:35] LABS: BASOPHIL # 0.1 TH/MM3 (0-0.2); BASOPHIL % 1.2 % (0.0-2.0); EOSINOPHIL # 0.4 TH/MM3 (0-0.4); HEMATOCRIT 36.6 % (35.0-46.0); HEMOGLOBIN 12.1 GM/DL (11.6-15.3); LYMPHOCYTE # 1.8 TH/MM3 (1.0-4.8); MEAN CELL VOLUME 82.3 FL (80.0-100.0); MEAN CORPUSCULAR HEMOGLOBIN 27.2 PG (27.0-34.0); MEAN PLATELET VOLUME 11.1 FL (7.0-11.0); MONO % 10.4 % (0.0-8.0); MONOCYTE # 1.3 TH/MM3 (0-0.9); NEUT % 71.4 % (16.0-70.0); PLATELET COUNT 260 TH/MM3 (150-450); RED BLOOD COUNT 4.45 MIL/MM3 (4.00-5.30); RED CELL DISTRIBUTION WIDTH 14.1 % (11.6-17.2); WHITE BLOOD COUNT 12.5 TH/MM3 (4.0-11.0)
[2018-01-04 07:42] LABS: INTERNATIONAL NORMALIZED RATIO 1.1 RATIO
[2018-01-04 08:06] LABS: ALKALINE PHOSPHATASE 103 U/L (45-117); TOTAL BILIRUBIN ADULT 1.1 MG/DL (0.2-1.0); TOTAL PROTEIN 7.5 GM/DL (6.4-8.2)
[2018-01-04 08:12] LABS: ALBUMIN 3.2 GM/DL (3.4-5.0); ALT (GPT) 20 U/L (10-53); AST (GOT) 51 U/L (15-37); BICARBONATE 25.6 MEQ/L (21.0-32.0); BLOOD UREA NITROGEN 17 MG/DL (7-18); CHLORIDE 108 MEQ/L (98-107); CREATININE 1.17 MG/DL (0.50-1.00); GLOMERULAR FILTRATION RATE 44 ML/MIN (>89); GLUCOSE,RANDOM 93 MG/DL (74-106); SODIUM (NA) 141 MEQ/L (136-145)
--- NOTE | 2018-01-04 08:28 | HHI.PR ---
Subjective Remarks Follow-up CVA. Patient is awake without complaints. Discussed with daughter Objective Vital Signs Date Time Temp Pulse Resp B/P (MAP) Pulse Ox O2 Delivery O2 Flow Rate FiO2 01/04/18 03:00 97.0 66 19 120/69 (86) 96 01/04/18 00:00 97.8 64 20 119/80 (93) 96 01/03/18 21:50 97.8 69 19 115/68 (84) 95 01/03/18 16:00 84 18 158/78 (104) 96 01/03/18 12:00 75 18 149/66 (93) 97 I/O 01/03/18 01/03/18 01/03/18 01/04/18 01/04/18 01/04/18 07:00 15:00 23:00 07:00 15:00 23:00 Intake Total 0 ml 550 ml Output Total 1450 ml Balance -1450 ml 550 ml Intake Oral 0 ml 550 ml Output Urine Total 1450 ml # Voids 5 # Bowel Movements 1 3 Result Diagram: 01/04/18 0639 01/04/18 0639 Objective Remarks restng vision impaired tremor less Assessment and Plan Assessment and Plan imp she needs to start coumadin and dc plavix and asa med team plz do tis needs nh placement mri bilat cva l>r major fall risk 01/04/18 on coumadin stable nhp Cole Lal MD January 04, 2018 08:28 Darian Wing MD January 05, 2018 17:18
--- NOTE | 2018-01-04 15:00 | HHI.PR ---
Subjective Remarks Follow-up CVA. She is easily arousable oriented to person. Tolerating diet. Intermittently following simple commands races upper extremity upon request but not lower extremity. Discussed with daughter who is power of attorney lawyer, patient is a DO NOT RESUSCITATE and requesting hospice consult. Agrees with anticoagulation with Coumadin discussed with case management Objective Vitals Vital Signs Date Time Temp Pulse Resp B/P (MAP) Pulse Ox O2 Delivery O2 Flow Rate FiO2 01/04/18 12:35 98.0 79 18 141/69 (93) 100 01/04/18 09:15 96 21 01/04/18 08:00 97.9 82 16 146/66 (92) 95 01/04/18 03:00 97.0 66 19 120/69 (86) 96 01/04/18 00:00 97.8 64 20 119/80 (93) 96 01/03/18 21:50 97.8 69 19 115/68 (84) 95 01/03/18 16:00 84 18 158/78 (104) 96 I/O 01/03/18 01/03/18 01/03/18 01/04/18 01/04/18 01/04/18 07:00 15:00 23:00 07:00 15:00 23:00 Intake Total 0 ml 550 ml Output Total 1450 ml Balance -1450 ml 550 ml Intake Oral 0 ml 550 ml Output Urine Total 1450 ml # Voids 5 # Bowel Movements 1 3 Result Diagram: 01/04/18 0639 01/04/18 0639 Imaging Last Impressions Head CT 01/02/18 1013 Signed Impressions: Service Date/Time: Tuesday, January 02, 2018 10:54 - CONCLUSION: 1. Abnormal low density in the right occipital lobe and posterior temporal lobe suspicious for cytotoxic edema related to a recent ischemic event. MRI could further characterize, if needed. 2. Otherwise, multiple chronic changes, as above, without definite change from the prior study. 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 Minh Galvan MD Carotid Artery Ultrasound 01/02/18 0000 Signed Impressions: Service Date/Time: Tuesday, January 02, 2018 21:57 - CONCLUSION: No evidence of flow-limiting carotid stenosis. Angus Maguire MD Brain MRI 01/02/18 0000 Signed Impressions: Service Date/Time: Tuesday, January 02, 2018 15:01 - CONCLUSION: 1. Diffuse signal abnormalities within the temporal lobes bilaterally as well as the left occipital lobe on the diffusion weighted images indicating acute infarctions in these locations. 2. Severe periventricular and subcortical white matter small vessel ischemic changes bilaterally. 3. Diffuse cerebral atrophy. 4. Old right cerebellar infarct. 5. Old lacunar infarcts within the bilateral basal ganglia. 6. No acute hemorrhage, midline shift or extra-axial fluid collections. Minh Galvan MD Objective Remarks GENERAL: NAD, A&Ox1 CARDIOVASCULAR: Irregularly irregular RESPIRATORY: Breath sounds equal bilaterally. No accessory muscle use. GASTROINTESTINAL: Abdomen soft, non-tender, nondistended. MUSCULOSKELETAL: No cyanosis, or edema. SKIN: Warm and dry. NEURO: Easily arousable oriented to person with generalized weakness worse left upper extremity according to the daughter is baseline. 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 CVA/AMS Continue to monitor clinically Neurology following MRI positive for left occipital, and bilateral temporal acute CVA. Discontinue IV fluids Patient able to eat Plan for correction facility at discharge Hospice consult at request of family As recommended by neurology, discontinue aspirin and Plavix, start Coumadin keep INR between 2 and 3 Chronic kidney disease stage III Monitor renal function avoid nephrotoxic agents Atrial fibrillation Rate controlled Discontinue telemetry Coumadin recommended by neurology Follow INR Dementia Continue donezepil Supportive care Hypothyroidism Continue levothyroxine Gastroesophageal reflux disease Continue Protonix DVT prophylaxis Heparin 5000 units Q8 Code Status DNR Discharge Planning Hospice consulted Problem Qualifiers (1) Altered mental status: Qualified Codes: R41.82 - Altered mental status, unspecified Darian Wing MD January 04, 2018 15:00
[2018-01-04] MEDS ORDERED: COUM5TAB PO (15:03)
--- NOTE | 2018-01-04 15:03 | HHI.DCPOC ---
Discharge Care Plan Diagnosis: (1) CVA (cerebral vascular accident) Your Health Problems Are: Difficulty with ADL Exercise Tolerance Goals to Promote Your Health * To prevent worsening of your condition and complications * To maintain your health at the optimal level Directions to Meet Your Goals Take your medications as prescribed Follow your dietary instruction Follow activity as directed Keep your appointments as scheduled Take your immunizations and boosters as scheduled If your symptoms worsen call your PCP, if no PCP go to Urgent Care Center or Emergency Room Smoking is Dangerous to Your Health. Avoid second hand smoke Call the 24-hour hour crisis hotline for domestic abuse at Darian Wing MD January 04, 2018 15:03
[2018-01-04] MEDS: WARFARIN SOD 5 MG TAB PO SCH (15:08)
[2018-01-04] MEDS: LEVOTHYROXINE SODIUM 25 MCG TAB PO SCH (20:14)
[2018-01-04] MEDS: DONEPEZIL HCL 5 MG TAB PO SCH (20:15)
[2018-01-04] MEDS: PRAVASTATIN SOD 40 MG TAB PO SCH (20:15)
[2018-01-05 00:50] VITALS: BP 142/64; PULSE 85; RESP 20; TEMP 97.3; O2SAT 95
[2018-01-05 05:08] VITALS: BP 147/63; PULSE 78; RESP 20; TEMP 97.7; O2SAT 96
[2018-01-05] MEDS: HEPARIN SODIUM - SQ 10,000 UNITS/ML VIAL SQ SCH ×2 (06:17→11:58)
[2018-01-05] MEDS: FAMOTIDINE 20 MG TAB PO SCH (07:49)
[2018-01-05] MEDS: PANTOPRAZOLE SOD 40 MG DELAYED RELEASE TAB PO SCH (07:49)
[2018-01-05] MEDS: SODIUM CHLORIDE 0.9% FLUSH 10 ML FLUSH IV FLUSH SCH ×2 (07:49→17:16)
--- NOTE | 2018-01-05 08:01 | HHI.PR ---
Objective Vital Signs Date Time Temp Pulse Resp B/P (MAP) Pulse Ox O2 Delivery O2 Flow Rate FiO2 01/05/18 05:08 97.7 78 20 147/63 (91) 96 01/05/18 00:50 97.3 85 20 142/64 (90) 95 01/04/18 21:13 21 01/04/18 20:38 97.5 86 20 127/58 (81) 96 01/04/18 16:00 98.2 72 16 154/68 (96) 96 01/04/18 12:35 98.0 79 18 141/69 (93) 100 01/04/18 09:15 96 21 I/O 01/04/18 01/04/18 01/04/18 01/05/18 01/05/18 01/05/18 07:00 15:00 23:00 07:00 15:00 23:00 Intake Total 550 ml Balance 550 ml Intake Oral 550 ml # Voids 5 1 2 # Bowel Movements 3 Result Diagram: 01/04/18 0639 01/04/18 0639 Objective Remarks awake moving all folows commands said kellielo Assessment and Plan Assessment and Plan imp she needs to start coumadin and dc plavix and asa med team plz do tis needs nh placement mri bilat cva l>r major fall risk 01/04/18 on coumadin stable nhp 01/05/18 looks a bit better inr 1.1 i will dw daughter HaliCole MD January 05, 2018 08:01
[2018-01-05 08:17] VITALS: BP 135/63; PULSE 73; RESP 20; TEMP 97.5; O2SAT 96
--- NOTE | 2018-01-05 08:54 | HHI.PR ---
Subjective Remarks Follow-up CVA and A. fib Objective Vitals Vital Signs Date Time Temp Pulse Resp B/P (MAP) Pulse Ox O2 Delivery O2 Flow Rate FiO2 01/05/18 08:17 97.5 73 20 135/63 (87) 96 01/05/18 05:08 97.7 78 20 147/63 (91) 96 01/05/18 00:50 97.3 85 20 142/64 (90) 95 01/04/18 21:13 21 01/04/18 20:38 97.5 86 20 127/58 (81) 96 01/04/18 16:00 98.2 72 16 154/68 (96) 96 01/04/18 12:35 98.0 79 18 141/69 (93) 100 01/04/18 09:15 96 21 I/O 01/04/18 01/04/18 01/04/18 01/05/18 01/05/18 01/05/18 07:00 15:00 23:00 07:00 15:00 23:00 Intake Total 550 ml Balance 550 ml Intake Oral 550 ml # Voids 5 1 2 # Bowel Movements 3 Result Diagram: 01/04/18 0639 01/04/18 0639 Imaging Last Impressions Head CT 01/02/18 1013 Signed Impressions: Service Date/Time: Tuesday, January 02, 2018 10:54 - CONCLUSION: 1. Abnormal low density in the right occipital lobe and posterior temporal lobe suspicious for cytotoxic edema related to a recent ischemic event. MRI could further characterize, if needed. 2. Otherwise, multiple chronic changes, as above, without definite change from the prior study. 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 Minh Galvan MD Carotid Artery Ultrasound 01/02/18 0000 Signed Impressions: Service Date/Time: Tuesday, January 02, 2018 21:57 - CONCLUSION: No evidence of flow-limiting carotid stenosis. Angus Maguire MD Brain MRI 01/02/18 0000 Signed Impressions: Service Date/Time: Tuesday, January 02, 2018 15:01 - CONCLUSION: 1. Diffuse signal abnormalities within the temporal lobes bilaterally as well as the left occipital lobe on the diffusion weighted images indicating acute infarctions in these locations. 2. Severe periventricular and subcortical white matter small vessel ischemic changes bilaterally. 3. Diffuse cerebral atrophy. 4. Old right cerebellar infarct. 5. Old lacunar infarcts within the bilateral basal ganglia. 6. No acute hemorrhage, midline shift or extra-axial fluid collections. Minh Galvan MD Objective Remarks GENERAL: NAD, A&Ox1 CARDIOVASCULAR: Irregularly irregular RESPIRATORY: Breath sounds equal bilaterally. No accessory muscle use. GASTROINTESTINAL: Abdomen soft, non-tender, nondistended. MUSCULOSKELETAL: No cyanosis, or edema. SKIN: Warm and dry. NEURO: Awake and oriented to person with generalized weakness worse on the left upper extremity according to the daughter is baseline. 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 CVA/AMS Continue to monitor clinically Neurology following MRI positive for left occipital, and bilateral temporal acute CVA. Discontinue IV fluids Patient able to eat Plan for prison facility at discharge Hospice consulted at request of family As recommended by neurology, discontinue aspirin and Plavix, start Coumadin keep INR between 2 and 3 Chronic kidney disease stage III Monitor renal function avoid nephrotoxic agents Atrial fibrillation Rate controlled Discontinue telemetry Coumadin recommended by neurology Follow INR Dementia Continue donezepil Supportive care Hypothyroidism Continue levothyroxine Gastroesophageal reflux disease Continue Protonix DVT prophylaxis Heparin 5000 units Q8 until Coumadin therapeutic Code Status DNR Discharge Planning Stable for discharge. Hospice consulted Problem Qualifiers (1) Altered mental status: Qualified Codes: R41.82 - Altered mental status, unspecified Darian Wing MD January 05, 2018 08:54
[2018-01-05 09:18] LABS: INTERNATIONAL NORMALIZED RATIO 1.5 RATIO; PROTHROMBIN TIME - PATIENT 14.7 SEC (9.8-11.6)
[2018-01-05 11:57] VITALS: BP 120/80; PULSE 79; RESP 20; TEMP 98.5; O2SAT 97
[2018-01-05] MEDS: ARTIFICIAL TEARS OPTH SOLN 15 ML BTL EACH EYE SCH ×2 (14:27→17:16)
[2018-01-05 16:15] VITALS: BP 139/62; PULSE 73; RESP 20; TEMP 98.1; O2SAT 97
[2018-01-05] MEDS: WARFARIN SOD 5 MG TAB PO SCH (17:15)
--- NOTE | 2018-01-05 17:21 | HHI.DS ---
Discharge Summary Admission Date January 02, 2018 at 12:35 Discharge Date: January 05, 2018 Admitting Diagnosis (1) CVA (cerebral vascular accident) ICD Code: I63.9 - Cerebral infarction, unspecified Diagnosis: Principal Status: Acute (2) IDRIS (acute kidney injury) ICD Code: N17.9 - Acute kidney failure, unspecified Diagnosis: Principal Status: Acute (3) Altered mental status ICD Code: R41.82 - Altered mental status, unspecified Diagnosis: Principal Status: Acute (4) Atrial fibrillation ICD Code: I48.91 - Unspecified atrial fibrillation Diagnosis: Principal Status: Chronic Procedures Non- Brief History - From Admission 87 year old female with history of CVA, dementia (questionable Parkinson's), atrial fibrillation, and hypothyroidism presenting with altered mental status. The patient's son and daughter are present and history is obtained by her daughter whom she lives with and who is her POA. The daughter reports yesterday her demeanor was completely different; typically she is pleasant and conversant but her daughter noted she was abnormally giddy, was not communicating, and did not know who her daughter was. She states she had a similar episode about six weeks ago that spontaneously resolved after about a day so her daughter was going to just watch her closely. 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 She did not have any obvious motor weakness, gait abnormalities, dysphagia, fever, nausea, vomiting, or abdominal pain. Her daughter states her urine was clear and nonodorous. Today she seems to be more sleepy. The patient was sleeping this morning when her daughter had to leave the house but later she pushed her life alert button and when her son-in-law heard emergency services on the speak he came to check on her. He noticed that she wouldn't speak to him so [facility] was called. Two days ago the patient was in her normal state of health. Normally she is conversant and has a good appetite. She ambulates with a cane. Patient's neurologist is Dr. Edward and competitive intelligence analyst is Dr. Watkins. She is not on anticoagulation secondary to history of frequent falls. Her daughter feels she may be ready to look into a care home for her mother as her is disabled and she has to take care of him as well. CBC/BMP: 01/04/18 0639 01/04/18 0639 Significant Findings Laboratory Tests Test 01/03/18 10:38 01/04/18 06:39 01/05/18 07:25 Neutrophils (%) (Auto) 76.8 % (16.0-70.0) 71.4 % (16.0-70.0) Neutrophils # (Auto) 8.1 TH/MM3 (1.8-7.7) 9.0 TH/MM3 (1.8-7.7) Creatinine 1.35 MG/DL (0.50-1.00) 1.17 MG/DL (0.50-1.00) Random Glucose 120 MG/DL (74-106) Estimat Glomerular Filtration Rate 37 ML/MIN (>89) 44 ML/MIN (>89) HDL Cholesterol 78.5 MG/DL (40.0-60.0) White Blood Count 12.5 TH/MM3 (4.0-11.0) Mean Platelet Volume 11.1 FL (7.0-11.0) Monocytes (%) (Auto) 10.4 % (0.0-8.0) Monocytes # (Auto) 1.3 TH/MM3 (0-0.9) Platelet Morphology Comment ENLARGED (NORMAL) Albumin 3.2 GM/DL (3.4-5.0) Aspartate Amino Transf (AST/SGOT) 51 U/L (15-37) Total Bilirubin 1.1 MG/DL (0.2-1.0) Chloride Level 108 MEQ/L (98-107) Prothrombin Time 14.7 SEC (9.8-11.6) Imaging Last Impressions Head CT 01/02/18 1013 Signed Impressions: Service Date/Time: Tuesday, January 02, 2018 10:54 - CONCLUSION: 1. Abnormal low density in the right occipital lobe and posterior temporal lobe suspicious for cytotoxic edema related to a recent ischemic event. MRI could further characterize, if needed. 2. Otherwise, multiple chronic changes, as above, without definite change from the prior study. 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 Minh Galvan MD Carotid Artery Ultrasound 01/02/18 Signed Impressions: Service Date/Time: Tuesday, January 02, 2018 21:57 - CONCLUSION: No evidence of flow-limiting carotid stenosis. Angus Maguire MD Brain MRI 01/02/18 Signed Impressions: Service Date/Time: Tuesday, January 02, 2018 15:01 - CONCLUSION: 1. Diffuse signal abnormalities within the temporal lobes bilaterally as well as the left occipital lobe on the diffusion weighted images indicating acute infarctions in these locations. 2. Severe periventricular and subcortical white matter small vessel ischemic changes bilaterally. 3. Diffuse cerebral atrophy. 4. Old right cerebellar infarct. 5. Old lacunar infarcts within the bilateral basal ganglia. 6. No acute hemorrhage, midline shift or extra-axial fluid collections. Minh Galvan MD PE at Discharge GENERAL: NAD, A&Ox1 CARDIOVASCULAR: Irregularly irregular RESPIRATORY: Breath sounds equal bilaterally. No accessory muscle use. GASTROINTESTINAL: Abdomen soft, non-tender, nondistended. MUSCULOSKELETAL: No cyanosis, or edema. SKIN: Warm and dry. NEURO: Awake and oriented to person with generalized weakness worse on the left upper extremity according to the daughter is baseline. 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 CVA/AMS Continue to monitor clinically Neurology following MRI positive for left occipital, and bilateral temporal acute CVA. Discontinue IV fluids Patient able to eat Plan for custodial facility at discharge Hospice consulted at request of family As recommended by neurology, discontinue aspirin and Plavix, start Coumadin keep INR between 2 and 3 Chronic kidney disease stage III Monitor renal function avoid nephrotoxic agents Atrial fibrillation Rate controlled Discontinue telemetry Coumadin recommended by neurology Follow INR Dementia Continue donezepil Supportive care Hypothyroidism Continue levothyroxine Gastroesophageal reflux disease Continue Protonix DVT prophylaxis Heparin 5000 units Q8 until Coumadin therapeutic Code Status DNR Pt Condition on Discharge: Guarded Discharge Disposition: Hospice/Med Facility Discharge Time: > 30 minutes Discharge Instructions DIET: Follow Instructions for: As Tolerated, No Restrictions Activities you can perform: Regular-No Restrictions Activities to Avoid: Driving Follow up Referrals: Neurology - 1 Week PCP Follow-up - 2-3 Days New Orders: PT/INR New Medications: Warfarin (Coumadin) 5 Mg Tab 5 MG PO DAILY@1600 for Prevent Blood Clot, #30 TAB Continued Medications: Donepezil HCl (Aricept) 10 Mg Tablet 1 TAB PO HS Levothyroxine (Levothyroxine) 25 Mcg Tab 25 MCG PO HS for Thyroid, #30 TAB 0 Refills Pantoprazole (Protonix) 40 Mg Tab 40 MG PO BID for Reflux, #30 TAB 0 Refills Simvastatin (Simvastatin) 20 Mg Tab 20 MG PO HS for Cholesterol Management, #30 TAB 0 Refills Darian Wing MD January 05, 2018 17:21
[2018-01-05 17:24] VITALS: O2SAT 97
== END 2018-01-05 19:00 | DRG 65 ==
LOC: NEPE 10:04 → NEDA 12:07 → OBSVTOIN 12:35 → N05B 15:34
PROVIDERS: ADMIT Internal Medicine; ATTEND Internal Medicine
DX: I63.9 Cerebral infarction, unspecified (principal); N17.9 Acute kidney failure, unspecified; I48.91 Unspecified atrial fibrillation; F03.90 Unspecified dementia, unspecified severity, without behavioral disturbance, psychotic disturbance, mood disturbance, and anxiety; E03.9 Hypothyroidism, unspecified; E78.5 Hyperlipidemia, unspecified; I12.9 Hypertensive chronic kidney disease with stage 1 through stage 4 chronic kidney disease, or unspecified chronic kidney disease; N18.3 Chronic kidney disease, stage 3 (moderate); K21.9 Gastro-esophageal reflux disease without esophagitis; Z66 Do not resuscitate; Z86.73 Personal history of transient ischemic attack (TIA), and cerebral infarction without residual deficits; Z90.710 Acquired absence of both cervix and uterus; Z91.81 History of falling; Z96.653 Presence of artificial knee joint, bilateral; Z79.02 Long term (current) use of antithrombotics/antiplatelets; Z79.82 Long term (current) use of aspirin; Z88.2 Allergy status to sulfonamides
CPT/HCPCS: 70450; 70544; 70551; 80048; 80053; 80061; 81001; 82550; 82948; 83036; 84443; 84484; 85025; 85610; 85730; 93005; 93880; J1644; J7030; J7040